=== PATIENT | female | born 1980 | race Two or more races ===

== ENCOUNTER 2023-12-25 14:21 | Outpatient (AMB) | payer MEDICAID, SELFPAY ==
--- NOTE | 2023-12-25 13:45 | A.OFFVISCC_ITS ---
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 Required: No Allergies No Known Allergies Allergy (Unknown, Unverified 08/12/20 17:08) HPI MAT Intake/Walk in HPI Details Patient presents as a walk in for intake and evaluation of opioid use Currently using 10-12 bags of heroin daily IN Last use this morning Substance Use History: No history of IV use Denies overdose no other substance use Starting using at age 31--thought it was cocaine Denies any treatment history Denies any other substance use tried someone's methadone once an did not like it Withdrawal sx --hot and cold, nausea, loose stools Denies any BH history Social History: -lives with BF and 2 teenage sons (16 an d 19) -currently not employed Medical History: -rt arm ORIF -chronic coccyx pain--from a fall, never treated -asthma -no PCP Review of Systems Const Reports difficulty sleeping, Reports lethargy, Reports malaise and Reports poor appetite Physical Exam Vital Signs: Last Vital Signs Pulse 88 12/25/23 14:24 Resp 20 12/25/23 14:24 BP 140/80 H 12/25/23 14:24 Oxygen Flow Rate 98 12/25/23 14:24 Const General: cooperative, anxious and well groomed Nutritional Appearance: average body habitus Assessment & Plan Assessment & Plan (1) Opioid use disorder: Code(s): F11.90 - Opioid use, unspecified, uncomplicated Plan: * reviewed low dose induction plan and provided instructions in writing as well * comfort medications ordered * encouraged to call office with any questions or concerns * labs to be completed at next visit * patient has narcan at home Medications: New buprenorphine-naloxone 2-0.5 mg (Suboxone) per induction protocol 1 film buccal BID 8 ea 0RF hydroxyzine HCl 25 mg PO TID PRN 20 tabs 0RF anxiety clonidine HCl 0.1 mg PO BID PRN 20 tabs 0RF withdrawal symptoms ondansetron 4 mg PO Q8H PRN 10 tabs 0RF nausea and vomiting Coding Level of Care Code New Pt Level 4 (34037) Diagnoses Opioid use disorder F11.90
[2023-12-25 14:24] VITALS: BP 140/80; PULSE 88; RESP 20
== END 2023-12-25 14:44 | disposition home or self-care (01) ==
PROVIDERS: Visit Provider Nurse Practitioner Psychiatric/Mental Health
DX: F11.90 Opioid use, unspecified, uncomplicated (principal)
CPT/HCPCS: 99204

== ENCOUNTER → 2023-12-25 14:21 | Outpatient (BNVA) | payer MEDICAID, SELFPAY | PROVIDERS: Visit Provider Nurse Practitioner Psychiatric/Mental Health | DX: F11.20 Opioid dependence, uncomplicated (principal) | CPT/HCPCS: 99212 ==

== ENCOUNTER 2023-12-28 13:33 | Emergency (ER) | payer MEDICAID, SELFPAY ==
[2023-12-28] VITALS (7 sets, daily range): BP systolic 135–173; BP diastolic 74–84; PULSE 64–96; RESP 16–22; TEMP 37–37.3; O2SAT 94–98; BMI 26.6
--- NOTE | ~2023-12-28 | CT_ITS ---
EXAMINATION: CT CHEST ANGIOGRAM PE PROTOCOL CLINICAL INFORMATION: , Reason for Exam shortness of breath COMPARISON: None TECHNIQUE: Volumetric imaging was performed through the chest. Reformatted coronal and sagittal imaging was performed. 3-D MIP images performed at a dedicated separate workstation. This CT examination was performed using dose optimization techniques as appropriate, variously including the following: *Automated exposure control *Adjustment of mA and/or kV according to patient size (this includes techniques or standardized protocols for targeted exams where dose is matched to indication/reason for exam; i.e. extremities or head) *Use of iterative reconstruction technique CONTRAST: 65 mL of Omnipaque 350 injected. DLP: 500 FINDINGS: PULMONARY ARTERIES: There is proper opacification of the pulmonary artery and its main branches . There are faint filling defect in peripheral secondary and tertiary branches which could be small nonocclusive emboli, [place] images. , Segmental and subsegmental branches to left lower lobe, alternatively artifacts.. LINES/TUBES: None LUNGS: Lung Parenchyma: Diffuse patchy solid and interstitial airspace opacification involving both lungs diffusely especially lower lobes and middle lobe most likely an infection possibly atypical infection such as viral or mycoplasma and/or aspiration. Lung Nodules:It is difficult to assess for lung nodule given the degree of lung involvement and follow-up CT scan would be required to ensure complete clearance and exclude underlying pathology. AIRWAYS: Trachea and bronchi are normal. PLEURA: No pleural effusion or pneumothorax. MEDIASTINUM AND JULIUS: The visualized thyroid gland is unremarkable. No mediastinal, hilar or axillary lymphadenopathy. There is no mediastinal mass. VESSELS: Thoracic aorta is normal in size. HEART AND PERICARDIUM: Heart is normal in size. There is no pericardial effusion. There are coronary calcifications. CHEST WALL, LOWER NECK, SURROUNDING SOFT TISSUES: Normal VISUALIZED ABDOMEN: Unremarkable BONES: The visualized bony thorax is within normal limits. CT/CT angio chest PE protocol IMPRESSION: 1. Diffuse patchy solid and interstitial airspace opacification involving both lungs diffusely especially lower lobes and middle lobe most likely an infection possibly atypical infection such as viral or mycoplasma and/or aspiration. 2. Indeterminant for PE, There are small faint filling defects in peripheral secondary and tertiary branches to left lower lobe, [place]ham images, which could be small nonocclusive emboli versus alternatively flow artifacts. No CT evidence of large central embolus. No CT evidence of right heart strain. May consider correlation with ultrasound venous Doppler DVT study of the lower extremities and/or repeat CT PE in 48 hours.
--- NOTE | ~2023-12-28 | XR_ITS ---
EXAMINATION: XR CHEST CLINICAL INFORMATION: Shortness of breath. COMPARISON: Chest 12/01/2011. TECHNIQUE: 2 views of the chest were obtained. FINDINGS: The lungs are well-expanded with increased bilateral vascular markings with mild cardiomegaly, question interstitial pneumonitis versus mild CHF. There is a soft tissue nodule right parahilar region measuring 3.2 cm. No pleural effusion seen. No gross bony abnormality. XR/XR chest 2V IMPRESSION: 1. Cardiomegaly with mild CHF versus interstitial pneumonitis. 2. Right parahilar soft tissue nodule measuring 3.[address] chest exam. 3. No pleural effusion seen. 4. Recommend CT correlation for mass.
--- NOTE | ~2023-12-28 | US_ITS ---
EXAMINATION: US VENOUS ULTRASOUND WITH DOPPLER LOWER EXTREMITY, BILATERAL CLINICAL INFORMATION: Pain and edema. COMPARISON: Bilateral lower extremity ultrasound 03/17/2019. TECHNIQUE: Ultrasound of the deep veins is performed from the hip to the calf with compression sonography and color and pulse Doppler assessment. Spectral analysis with color-flow imaging is performed. FINDINGS: RIGHT: There is normal venous compression and respiratory variation and augmented flow. The visualized common femoral vein, superficial femoral vein, profunda femoral vein, popliteal vein, and the trifurcation region shows no evidence of deep venous thrombosis. There is no significant popliteal fossa cyst. LEFT: There is normal venous compression and respiratory variation and augmented flow. The visualized common femoral vein, superficial femoral vein, profunda femoral vein, popliteal vein, and the trifurcation region shows no evidence of deep venous thrombosis. There is no significant popliteal fossa cyst. If the patient's symptoms persist, followup ultrasound in 5 days 7 days might be of value to exclude proximal propagation from a non-visualized calf vein. US/US venous duplex LE BI IMPRESSION: No DVT demonstrated in the bilateral lower extremities.
--- NOTE | 2023-12-28 13:53 | ED_ITS ---
HPI - General Adult General Chief complaint: Dyspnea Stated complaint: cough/ SOB Time Seen by Provider: 12/28/23 16:54 Source: patient and RN notes reviewed Mode of arrival: ambulatory Limitations: no limitations History of Present Illness HPI narrative: 43-year-old female with past medical history significant for opiate abuse recently started on Suboxone presents for evaluation of shortness of breath. Patient reports she has had a cough for a couple of weeks but reports shortness of breath for last 3 days and definitely worse today She reports worsening leg swelling for the last week. Patient states that she drinks lots of alexandrea navneet and water daily Denies any history of heart failure She denies any fevers or chills Patient reports that as a child she had asthma and was hospitalized several times but this has not been an issue for many years Denies any sick contacts Related Data Previous Rx's Medication Instructions Recorded buprenorphine 2 mg-naloxone 0.5 mg 1 film buccal BID #8 ea 12/25/23 sublingual film (Suboxone) clonidine HCl 0.1 mg tablet 0.1 mg PO BID PRN withdrawal 12/25/23 symptoms #20 tabs hydroxyzine HCl 25 mg tablet 25 mg PO TID PRN anxiety #20 tabs 12/25/23 ondansetron 4 mg disintegrating 4 mg PO Q8H PRN nausea and 12/25/23 tablet vomiting #10 tabs amoxicillin 875 mg-potassium 1 tab PO Q12H #13 tabs 12/28/23 clavulanate 125 mg tablet azithromycin 250 mg tablet 250 mg PO DAILY 4 days #4 tabs 12/28/23 Allergies Allergy/AdvReac Type Severity Reaction Status Date / Time No Known Allergies Allergy Unknown Verified 12/28/23 13:53 Review of Systems 2 Constitutional: Constitutional: Denies chills and Denies fever(s) ENT: Denies sore throat Cardiovascular: Cardiovascular: Denies chest pain, Reports pedal edema, Reports leg edema and Reports dyspnea Respiratory: Respiratory: Reports chest congestion, Reports cough, Reports dyspnea and Reports wheezing Gastrointestinal: Gastrointestinal: Denies abdominal pain, Denies nausea and Denies vomiting Musculoskeletal: Musculoskeletal: Denies back pain Integumentary/Breasts: Skin/Breast: Denies rash Allergic/Immunologic: Allergic/Immunologic: Reports wheezing PMFSH Social History Social History Alcohol intake: former Smoked in Last 30 Days: No Use of substances other than those prescribed or required for medical reasons: No Advance Directives: No Advance Directives Information Provided: No Physical Exam ED Vital Signs: Vital Signs - 24 hr 12/28/23 13:49 12/28/23 17:32 12/28/23 17:50 Temperature 98.6 F 98.9 F Pulse Rate 86 64 87 Respiratory Rate 22 H 20 16 Blood Pressure 150/74 H 173/84 H Pulse Oximetry 96 97 Oxygen Delivery Method Room Air Room Air 12/28/23 18:59 12/28/23 19:16 12/28/23 20:00 Temperature 99.1 F Pulse Rate 96 76 Respiratory Rate 22 H 16 16 Blood Pressure 150/84 H 135/81 Pulse Oximetry 96 94 Oxygen Delivery Method Room Air Room Air 12/28/23 21:38 Temperature Pulse Rate 74 Respiratory Rate 16 Blood Pressure 142/77 H Pulse Oximetry 95 Oxygen Delivery Method Room Air BMI result Body Mass Index 26.6 Const General: healthy appearing, comfortable, no acute distress, alert and awake Nutritional Appearance: well nourished Orientation/consciousness: patient oriented x3 HENMT Head: Yes normocephalic and Yes atraumatic Eyes Eyelids: Yes eyelids normal Conjunctivae: conjunctivae normal Sclerae: sclerae normal Corneas: corneas normal Pupils: Equal, round and reactive pupils present EOM: EOMs intact bilaterally Neck Neck: Yes full ROM Resp Effort & Inspection: normal respiratory effort, able to speak in complete sentences and not labored Auscultation: not clear to auscultation bilaterally, crackles bilateral and diffuse and wheezes throughout Cardio Other: 2+ bilateral pitting edema Rate: regular rate Rhythm: regular rhythm Skin General skin exam: elasticity normal Neuro General: patient oriented x3 Cranial nerves: Yes Equal, round and reactive pupils present and Yes Bilaterally intact EOM present Cognition (Neuro): normal cognition Extrem Other: Moving all extremities well without any obvious deformities Course Course Course Narrative: RME performed by Joanie Dobbins PA-C. Patient is a 43 year old assigned female at presenting to the emergency department with a cough and shortness of breath. Detailed physical exam and review of systems are deferred to the lumber tying machine operator. Labs, imaging, and swabs ordered. Patient placed back in the waiting room pending room availability and results. Reevaluation(s) Reevaluation #1: Patient's chest x-ray shows likely CHF, cardiomegaly and a 3.2 cm pulmonary nodule. Was recommended to follow-up with a CT scan to better evaluate this and rule out mass. The patient does have a smoking history. She states that she smoked ?on and off for a few years approximately 8 cigarettes per day. ? Will get a CTA to better evaluate this. Patient was given Lasix as her BNP was also elevated at 252 in her clinical picture was consistent with CHF. Patient will likely require admission for cardiac workup. I discussed all results with the patient Time: 18:32 Reevaluation #2: Discussed with the hospitalist who does not feel the patient needs admission. The CT angiography was concerning for infectious process and less likely to be significant heart failure. He recommends treatment for pneumonia and outpatient follow-up with Cardiology. I discussed with the patient. Time: 22:11 Medications Administered Discontinued Medications Generic Name Dose Route Start Last Admin Trade Name Freq PRN Reason Stop Dose Admin Albuterol Sulfate 2.5 mg/ 0 mg 12/28/23 17:29 12/28/23 17:46 Albuterol/Ipratropium 3 ml INHALE 12/28/23 17:30 5 dose ONCE ONE Administration Furosemide 20 mg 12/28/23 18:23 12/28/23 19:00 Furosemide 20 Mg/2 Ml Vial IVPUSH 12/28/23 18:24 20 mg ONCE ONE Administration Protocol Iohexol 100 ml 12/28/23 19:45 12/28/23 19:46 Iohexol 350 Mg/Ml 100 Ml Infus..Btl IV 12/28/23 19:46 65 ml ONCE ONE Administration Medical Decision Making Medical Decision Making [facility] Narrative: 43-year-old female presents for evaluation shortness of breath. On exam she has 2+ pitting edema, wheezes and crackles on exam. There appears to be a component of fluid overload. Plan for chest x-ray will add a BNP. Patient will get a breathing treatment she also has a history of asthma with wheezing. Her vital signs are currently stable, she has not hypoxic on room air Differential Diagnosis Differential Diagnoses: The differential diagnosis associated with the presentation includes Asthma exacerbation Bronchitis Fluid overload CHF Pneumonia Lab Data [facility] Lab Attestation statement: I reviewed the patient's lab results. No leukocytosis. No left shift. Patient has mild eosinophilia. The patient has a mild normocytic anemia. No significant electrolyte abnormalities or chemistry abnormalities 12/28/23 14:10 12/28/23 14:10 Labs: Lab Results 12/28/23 12/28/23 Range/Units 14:10 19:17 WBC 6.5 (4.8-10.8) X10*3/uL RBC 3.75 L (4.20-5.50) X10*6/uL Hgb 11.5 L (12.0-16.0) g/dl Hct 33.6 L (37.0-47.0) % MCV 89.6 (80.0-98.0) fL MCH 30.7 (27.0-33.0) pg MCHC 34.2 (31.0-35.0) g/dl RDW 12.5 (11.0-16.0) % Plt Count 276 (160-400) X10*3/uL MPV 9.2 L (9.4-12.3) fL Immature Gran % (Auto) 0.3 (0.0-0.4) % Neut % (Auto) 69.2 (45-73) % Lymph % (Auto) 19.2 L (20-40) % [place] % (Auto) 6.7 (2-11) % Eos % (Auto) 4.1 H (0-4) % Baso % (Auto) 0.5 (0-2) % Lymph # (Auto) 1.3 (1.2-4.9) X10*3/uL [place] # (Auto) 0.4 (0.1-1.2) X10*3/uL Eos # (Auto) 0.3 (0.0-0.4) X10*3/uL Baso # (Auto) 0.0 (0.0-0.2) X10*3/uL Abs Immat Gran (auto) 0.02 (0.00-0.03) X10*3/uL Absolute Neuts (auto) 4.5 (2.0-8.3) x10*3/uL Absolute Nucleated RBC 0.000 (0.0-0.012) X10*3/uL Nucleated RBC % (auto) 0.0 (0.0-0.2) /100WBC Sodium 136 (135-145) mmol/L Potassium 3.8 (3.3-5.1) mmol/L Chloride 103 (96-108) mmol/L Carbon Dioxide 26 (22-29) mmol/L Anion Gap 11 L (12-20) BUN 6 L (9-16) mg/dL Creatinine 0.67 (0.5-1.4) mg/dL Estim Creat Clear Calc 113.1 Estimated GFR > 60 Random Glucose 96 (60-115) mg/dL Calcium 9.5 (8.4-10.2) mg/dL Magnesium 1.9 (1.6-2.6) mg/dL Total Bilirubin 0.5 (0.0-1.0) mg/dL AST 23 (5-31) U/L ALT 20 (0-31) U/L Alkaline Phosphatase 62 (39-117) U/L Troponin I High Sens < 2.7 (<3.5-17.0) ng/L B-Natriuretic Peptide 252 H (<100) pg/mL Total Protein 8.2 H (6.5-8.0) g/dL Albumin 4.1 (3.5-5.0) g/dL Urine Color Yellow Urine Appearance Clear Urine pH 7.5 (5.0-9.0) Ur Specific [place] <= 1.005 (1.005-1.025) Urine Protein Negative (Neg-Trace) mg/dL Urine Glucose (UA) Negative (Negative) mg/dL Urine Ketones Trace (Negative) mg/dL Urine Blood Negative (Negative) Urine Nitrite Negative (Negative) Ur Leukocyte Esterase Negative (Negative) Urine Test NEGATIVE (NEGATIVE) COVID-19 ([facility]) Negative (Negative) COVID-19 Clin Com See Note Influenza Type A ([facility]) Negative (Negative) Influenza Type B (JOHN) Negative (Negative) Influenza A & B Note See Note Discharge Plan Discharge Clinical Impression: Acute dyspnea, Community acquired pneumonia, Congestive heart failure Patient Disposition: Home, Self-Care Instructions: Community Acquired Pneumonia (ED) Additional Instructions: Your workup showed mild heart failure as well as pneumonia You were given a water pill, Lasix to help remove the excess fluid Take your antibiotics as prescribed Follow-up with cardiology as an outpatient for the heart failure Return for new or worsening symptoms Prescriptions: New azithromycin 250 mg tablet 250 mg PO DAILY 4 Days Qty: 4 0RF Rx Instructions: start on day 2 of therapy amoxicillin-pot clavulanate 875-125 mg tablet 1 tab PO Q12H Qty: 13 0RF No Action buprenorphine-naloxone [Suboxone] 2-0.5 mg film 1 film buccal BID Qty: 8 0RF Rx Instructions: per induction protocol clonidine HCl 0.1 mg tablet 0.1 mg PO BID PRN (Reason: withdrawal symptoms) Qty: 20 0RF hydroxyzine HCl 25 mg tablet 25 mg PO TID PRN (Reason: anxiety) Qty: 20 0RF ondansetron 4 mg tablet,disintegrating 4 mg PO Q8H PRN (Reason: nausea and vomiting) Qty: 10 0RF
--- NOTE | 2023-12-28 13:54 | ECG_ITS ---
Test Reason : sob Blood Pressure : / mmHG Vent. Rate : 056 BPM Atrial Rate : 056 BPM P-R Int : 154 ms QRS Dur : 068 ms QT Int : 416 ms P-R-T Axes : 048 019 003 degrees QTc Int : 401 ms Sinus bradycardia with sinus arrhythmia Possible Anterior infarct , age undetermined Abnormal ECG No previous ECGs available Referred By: Joanie Dobbins Electronically Signed By:EDYTA CALDERON MD
[2023-12-28 14:14] LABS: MANUAL DIFF FLAG NO
[2023-12-28 14:16] LABS: Basophils Percent Auto 0.5 % (0-2); Eosinophils Absolute Auto 0.3 X10*3/uL (0.0-0.4); Eosinophils Percent Auto 4.1 % (0-4); Hematocrit 33.6 % (37.0-47.0); Hemoglobin 11.5 g/dl (12.0-16.0); Imm Gran Abs Auto 0.02 X10*3/uL (0.00-0.03); Imm Gran Pct Auto 0.3 % (0.0-0.4); Lymphocytes Absolute Auto 1.3 X10*3/uL (1.2-4.9); Lymphocytes Percent Auto 19.2 % (20-40); Mean Corpuscular HGB Conc 34.2 g/dl (31.0-35.0); Mean Corpuscular Hemoglobin 30.7 pg (27.0-33.0); Mean Corpuscular Volume 89.6 fL (80.0-98.0); Mean Platelet Volume 9.2 fL (9.4-12.3); Monocytes Absolute Auto 0.4 X10*3/uL (0.1-1.2); Monocytes Percent Auto 6.7 % (2-11); Neutrophils Absolute Auto 4.5 x10*3/uL (2.0-8.3); Neutrophils Percent Auto 69.2 % (45-73); Platelet Count 276 X10*3/uL (160-400); Red Blood Count 3.75 X10*6/uL (4.20-5.50); Red Cell Distribution Width 12.5 % (11.0-16.0); White Blood Count 6.5 X10*3/uL (4.8-10.8)
[2023-12-28 14:30] LABS: Alanine Aminotransferase 20 U/L (0-31); Albumin Level 4.1 g/dL (3.5-5.0); Alkaline Phosphatase 62 U/L (39-117); Anion Gap 11 (12-20); Aspartate Amino Transferase 23 U/L (5-31); Bilirubin Total 0.5 mg/dL (0.0-1.0); Blood Urea Nitrogen 6 mg/dL (9-16); Calcium 9.5 mg/dL (8.4-10.2); Carbon Dioxide 26 mmol/L (22-29); Chloride 103 mmol/L (96-108); Creatinine Clr Calc Pharmacy 113.1; Estimated Glomerular Filt Rate > 60; Glucose Random 96 mg/dL (60-115); Magnesium 1.9 mg/dL (1.6-2.6); Potassium 3.8 mmol/L (3.3-5.1); Sodium 136 mmol/L (135-145); Total Protein 8.2 g/dL (6.5-8.0)
[2023-12-28 14:39] LABS: COVID-19 Test Negative (Negative); IDNOW Serial# 08D9AD1C; IDNOW Serial# 152EDE1D; Influenza A Negative (Negative); Influenza B2 Negative (Negative); Troponin-I High Sensitivity < 2.7 ng/L (<3.5-17.0)
--- NOTE | 2023-12-28 17:34 | PC.NURSE ---
a&ox4, reporting SOB on with cough and trouble breathing for about 2 weeks. Lung sounds insp/exp wheezing. hx of childhood asthma. Spo2 99% RA.
[2023-12-28] MEDS: Albuterol Sulfate 2.5 MG, Albuterol/Iprat 2.5/0.5MG 3 ML 3 ML INHALE (17:46)
[2023-12-28 18:13] LABS: B Type Natriuretic Peptide 252 pg/mL (<100)
[2023-12-28] MEDS: Furosemide 20 MG/2 ML VIAL IVPUSH (19:00)
[2023-12-28 19:25] LABS: Appearance Urine Clear; Color Urine Yellow; Glucose Urine UA Negative (Negative); Leukocyte Esterase Urine Negative (Negative); Nitrite Urine Negative (Negative); PH 7.5 (5.0-9.0); Specific Gravity - Urine <= 1.005 (1.005-1.025); Urine Blood Negative (Negative); Urine Ketones Trace mg/dL (Negative); Urine Protein Negative (Neg-Trace)
--- NOTE | 2023-12-28 19:31 | PC.NURSE ---
assumed care of pt at 1900 - previous RN leann placed iv line #20g LAC, administered 20mg lasix iv per jan, pt ambulatory independently to and from bathroom with steady gait. waiting for CT scan. plan of care ongoing
[2023-12-28] MEDS: iohexoL 350 MG/ML 100 ML INFUS..BTL IV (19:46)
[2023-12-28 19:54] LABS: UPreg QC Valid YES; Urine Pregnancy NEGATIVE (NEGATIVE)
[2023-12-28] MEDS: Azithromycin 500 MG TABLET PO (22:48)
[2023-12-28] MEDS: Amoxicillin/Potassium Clav 875 MG TABLET PO (22:48)
== END 2023-12-28 22:53 | disposition home or self-care (01) ==
PROVIDERS: Physician Assistant; Physician Assistant Medical; Emergency Provider Emergency Medicine Emergency Medical Services
DX: J18.8 Other pneumonia, unspecified organism (principal); R06.09 Other forms of dyspnea; R06.02 Shortness of breath; I50.9 Heart failure, unspecified; Z11.52 Encounter for screening for COVID-19; R60.0 Localized edema; D64.9 Anemia, unspecified; F11.20 Opioid dependence, uncomplicated; Z79.899 Other long term (current) drug therapy
CPT/HCPCS: 71046; 71275; 80053; 81003; 81025; 83735; 83880; 84484; 85025; 87502; 87635; 93005; 93970; 94640; 96374; 99284; 99285; J1940; Q9967

== ENCOUNTER → 2023-12-28 13:54 | Outpatient (BNV) | payer MEDICAID, SELFPAY | PROVIDERS: Emergency Provider Emergency Medicine Emergency Medical Services; Visit Provider Internal Medicine Cardiovascular Disease | DX: R00.1 Bradycardia, unspecified (principal) | CPT/HCPCS: 93010 ==

== ENCOUNTER 2024-01-18 08:18 | Outpatient (REF) | payer MEDICAID, SELFPAY ==
[2024-01-18 09:12] LABS: MANUAL DIFF FLAG NO
[2024-01-18 09:22] LABS: Basophils Percent Auto 0.5 % (0-2); Eosinophils Absolute Auto 0.5 X10*3/uL (0.0-0.4); Eosinophils Percent Auto 7.6 % (0-4); Hematocrit 38.8 % (37.0-47.0); Hemoglobin 12.9 g/dl (12.0-16.0); Imm Gran Abs Auto 0.02 X10*3/uL (0.00-0.03); Imm Gran Pct Auto 0.3 % (0.0-0.4); Lymphocytes Absolute Auto 1.6 X10*3/uL (1.2-4.9); Lymphocytes Percent Auto 26.8 % (20-40); Mean Corpuscular HGB Conc 33.2 g/dl (31.0-35.0); Mean Corpuscular Hemoglobin 30.1 pg (27.0-33.0); Mean Corpuscular Volume 90.7 fL (80.0-98.0); Mean Platelet Volume 9.2 fL (9.4-12.3); Monocytes Absolute Auto 0.5 X10*3/uL (0.1-1.2); Monocytes Percent Auto 8.8 % (2-11); Neutrophils Absolute Auto 3.3 x10*3/uL (2.0-8.3); Platelet Count 237 X10*3/uL (160-400); Red Blood Count 4.28 X10*6/uL (4.20-5.50); Red Cell Distribution Width 12.7 % (11.0-16.0); White Blood Count 5.9 X10*3/uL (4.8-10.8)
[2024-01-18 09:48] LABS: B Type Natriuretic Peptide 30 pg/mL (<100)
[2024-01-18 10:00] LABS: Anion Gap 11 (12-20); Blood Urea Nitrogen 6 mg/dL (9-16); Calcium 9.6 mg/dL (8.4-10.2); Carbon Dioxide 29 mmol/L (22-29); Chloride 101 mmol/L (96-108); Estimated Glomerular Filt Rate > 60; Glucose Random 107 mg/dL (60-115); Potassium 3.9 mmol/L (3.3-5.1); Sodium 137 mmol/L (135-145)
[2024-01-18 10:16] LABS: TSH reflex Free T4 2.69 uIU/mL (0.32-4.0)
== END 2024-01-18 08:19 | disposition home or self-care (01) ==
LOC: HO.LAB 08:18
PROVIDERS: Visit Provider Nurse Practitioner Family
DX: R00.0 Tachycardia, unspecified (principal); R60.9 Edema, unspecified; I50.9 Heart failure, unspecified; F11.20 Opioid dependence, uncomplicated
CPT/HCPCS: 36415; 80048; 83880; 84443; 85025; 93005; 99212

== ENCOUNTER 2024-01-18 08:18 | Outpatient (AMB) | payer MEDICAID, SELFPAY ==
--- NOTE | 2024-01-18 08:20 | A.OFFVIS_ITS ---
Intake Vital Signs 01/18/24 08:21 Height 5 ft 6 in Weight 163 lb 9.328 oz BMI 26.4 BP 120/74 Blood Pressure Location Lt brachial Position Sitting Pulse 105 H Pulse Source Monitor Intake Visit Reasons: HMC/2-2/SOB/Cough Intake Note: pt having s/b while and during physical activities and both leg swelling Sealer Sander Required: No Allergies No Known Allergies Allergy (Unknown, Verified 01/18/24 08:24) Medication List - Last Reconciled 01/18/24 by Rhiannon Choe, BERNIE-C buprenorphine-naloxone 2-0.5 mg (Suboxone) 1 film buccal BID clonidine HCl 0.1 mg PO BID PRN hydroxyzine HCl 25 mg PO TID PRN ondansetron 4 mg PO Q8H PRN HPI HMC/2-2/SOB/Cough HPI Details Carlita is a 43 yo female with PMH of opioid use, now on suboxone who was recently seen in the [facility] ED for shortness of breath and treated for PNA and mild fluid overload. She was referred to cardiology to follow up on CHF. Today she presents for cardiology consultation. She tells me she has had issues with leg edema in the last few years. More recently it has increased. She has not been told in the past why she has edema. She recalls having ultrasounds and was told there was no blood clots. She is also noticing newer shortness of breath with activity. She tells me she sleeps with 2 pillows which is new. No chest discomfort at rest or with activity. No heart palpitations, lightheadedness, presyncope, syncope, PND. She does normal ADLs but no routine exercise. She has a remote history of smoking cigarettes, social alcohol use. She continues to have issues with substance use. She last used heroin a few days ago. No known family history of any heart disease. [facility] Medical History (Updated 01/18/24 @ 10:59 by Rhiannon Choe, BERNIE-C) Opioid use disorder Family History (Updated 01/18/24 @ 11:00 by Rhiannon Choe NP-C) Mother Asthma Sister Asthma Social History Alcohol intake: former Review of Systems Const All systems reviewed & are unremarkable except as noted in HPI and below ENT Denies dizziness Card Denies chest pain, Denies chest pain at rest, Denies chest pain with activity, Denies rapid heart rate, Denies pedal edema, Denies edema, Reports leg edema, Denies lightheadedness, Denies palpitations, Denies dyspnea, Reports dyspnea on exertion and Denies orthopnea Resp Denies cough, Denies dyspnea and Reports dyspnea on exertion GI Denies hematochezia and Denies change in stool character Musc Denies abnormal gait, Denies limited range of motion, Denies muscle cramps, Denies muscle weakness, Denies numbness, Denies radiating pain into limb, Denies stiffness and Denies tingling Neuro Denies abnormal gait, Denies dizziness, Denies numbness and Denies tingling Endo Denies palpitations Physical Exam Vital Signs: Last Vital Signs Pulse 105 H 01/18/24 08:21 BP 120/74 01/18/24 08:21 BMI result Body Mass Index 26.4 Const General: cooperative, healthy appearing, comfortable and no acute distress Orientation/consciousness: patient oriented x3 Neck Neck: Yes normal visual inspection and Yes no JVD Resp Effort & Inspection: normal respiratory effort Auscultation: clear to auscultation bilaterally, no crackles, no rales, no rhonchi and no wheezes Cardio Jugular venous distension: no JVD Rate: regular rate Rhythm: regular rhythm Heart sounds: S1 normal heart sound present, S2 normal heart sound present, no murmurs and no rubs Peripheral pulses: Peripheral pulses 2+ throughout Neuro General: patient oriented x3 Extrem Other: pitting edema from upper calf to feet bilaterally Psych Appearance: grossly normal Mental Status: mental status grossly normal Speech and movement: Normal speech and movement present Office Procedures EKG Details: Today read by me Sinus tachycardia, rate 105, QTc 446ms [id number], Complete Assessment & Plan Assessment & Plan (1) Congestive heart failure: Code(s): I50.9 - Heart failure, unspecified Plan: Recent [facility] ED evaluation for shortness of breath and cough. BNP elevated at 252. Chest x-ray showed cardiomegaly with mild Congestive heart failure versus interstitial pneumonitis. He was also a perihilar soft tissue nodule 3.2 cm. She then underwent a CTA of the chest showing diffuse patchy solid and interstitial air space opacification of both lungs especially in the lower lobes and middle lobe likely infectious. Indeterminate for PE, no evidence of large central emboli, no CT evidence of right heart strain. Lower extremity duplex showed no DVT. She was treated for pneumonia and given IV diuretic for fluid overload. Today she reports that she continues to have shortness of breath however it has improved some. She describes orthopnea and has bilateral leg edema. The leg edema issue is not new however she reports it as recently worsened. No JVD or rales noted on exam. Pulse rate is elevated today. EKG showing sinus tachycardia, rate 105. Will check labs today including CBC, BMP, BNP, TSH. Labs available prior to completion of this note. No significant abnormalities, BNP 30. Will give a low-dose of Lasix for a few days to see if that improves her edema and shortness of breath. Will check echocardiogram to assess for any structural heart disease. Pending echo results may need stress test for further evaluation. Compression stocks given. It is possible her swelling is related to peripheral vascular disease and that her shortness of breath is related to recent pneumonia. White count was normal on her labs. Reviewed low-salt diet. Emergency care if needed for worsening of symptoms. Cardiology follow-up in 4 weeks, sooner if needed (2) Edema: Code(s): R60.9 - Edema, unspecified Plan: As above (3) Acute dyspnea: Code(s): R06.00 - Dyspnea, unspecified Plan: Recent ER evaluation with diagnosis of pneumonia and fluid overload (4) Community acquired pneumonia: Code(s): J18.9 - Pneumonia, unspecified organism Plan: As above. Still having some shortness of breath, afebrile and normal white count. (5) Sinus tachycardia: Code(s): R00.0 - Tachycardia, unspecified Plan: Mild sinus tachycardia noted on EKG today Plan Time spent on chart review, documentation, interview and assessment Orders: Orders Complete Blood Count Auto Diff Today R00.0 - Tachycardia, unspecified, R60.9 - Edema, unspecified TSH reflex Free T4 Today R00.0 - Tachycardia, unspecified, R60.9 - Edema, unspecified CA echo transthoracic complete Today I50.9 - Heart failure, unspecified, R00.0 - Tachycardia, unspecified, R60.9 - Edema, unspecified B Type Natriuretic Peptide Today R00.0 - Tachycardia, unspecified, R60.9 - Edema, unspecified Basic Metabolic Panel Today R00.0 - Tachycardia, unspecified, R60.9 - Edema, unspecified Medications: New furosemide (Lasix) Water pill to help reduce leg swelling 20 mg PO DAILY 10 tabs 0RF Coding Level of Care Code New Pt Level 4 (73931) Diagnoses Congestive heart failure I50.9 Edema R60.9 Acute dyspnea R06.00 Community acquired pneumonia J18.9 Sinus tachycardia R00.0 CPT Codes EKG - CPT: 08703-[id number], Complete ([id number]) Time Spent (min) 28
[2024-01-18 08:21] VITALS: BP 120/74; PULSE 105; BMI 26.4
== END 2024-01-18 08:57 | disposition home or self-care (01) ==
PROVIDERS: Visit Provider Nurse Practitioner Family
DX: I50.9 Heart failure, unspecified (principal); R60.9 Edema, unspecified; R06.00 Dyspnea, unspecified; J18.9 Pneumonia, unspecified organism; R00.0 Tachycardia, unspecified
CPT/HCPCS: 93010; 99204

== ENCOUNTER 2024-01-18 09:21 | Outpatient (AMB) | payer MEDICAID, SELFPAY ==
[2024-01-18 09:25] VITALS: BP 150/90; PULSE 123; O2SAT 96
--- NOTE | 2024-01-18 09:25 | A.OFFVISCC_ITS ---
Intake Vital Signs 01/18/24 09:25 BP 150/90 H Blood Pressure Location Lt brachial Position Sitting Pulse 123 H Pulse Source Pulse Oximeter Pulse Oximetry (%) 96 Oxygen Delivery Method Room Air Intake Visit Reasons: mat Allergies No Known Allergies Allergy (Unknown, Verified 01/18/24 08:24) HPI mat HPI Details Patient presents for OUD treatment follow up Patient reports she restarted induction process Has been cutting down her use --down to 5 bags daily then her plan is to no longer use after today. Still has comfort medications and suboxone films Earlier today seen by cardiology and labs ordered due to bilateral lower leg edema PFSH Social History Alcohol intake: former Review of Systems Const Reports as per HPI, Reports chills, Reports lethargy and Reports malaise Physical Exam Vital Signs: Last Vital Signs Pulse 123 H 01/18/24 09:25 BP 150/90 H 01/18/24 09:25 Pulse Ox 96 01/18/24 09:25 Oxygen Delivery Method Room Air 01/18/24 09:25 Const General: cooperative, no acute distress and tired appearing Assessment & Plan Assessment & Plan (1) Opioid use disorder: Code(s): F11.90 - Opioid use, unspecified, uncomplicated Plan: * all medications refilled * reviewed induction process * Discussed ATS admission if induction becomes too challenging * encouraged to call office with any questions or concerns * follow up one week Medications: Refilled buprenorphine-naloxone 2-0.5 mg (Suboxone) per induction protocol 1 film buccal BID 8 ea 0RF clonidine HCl 0.1 mg PO BID PRN 20 tabs 0RF withdrawal symptoms ondansetron 4 mg PO Q8H PRN 10 tabs 0RF nausea and vomiting hydroxyzine HCl 25 mg PO TID PRN 20 tabs 0RF anxiety Coding Level of Care Code Est Pt Level 4 (40285) Diagnoses Opioid use disorder F11.90
== END 2024-01-18 09:42 | disposition home or self-care (01) ==
PROVIDERS: Visit Provider Nurse Practitioner Psychiatric/Mental Health
DX: F11.90 Opioid use, unspecified, uncomplicated (principal)
CPT/HCPCS: 99214

== ENCOUNTER → 2024-01-21 15:01 | Outpatient (REF) | payer MEDICAID, SELFPAY ==
--- NOTE | 2024-01-21 15:06 | CA_ITS ---
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 The visually estimated ejection fraction is between 55-60%. - No obvious valvular pathology seen on this study. Findings Left Ventricle Normal left ventricular cavity size. There is normal left ventricular wall thickness. The left ventricular systolic function is normal. The visually estimated ejection fraction is between 55-60%. There is no evidence of regional wall motion abnormalities. Diastolic function is normal for age. LV peak GLS -16.3% (slightly reduced). Right Ventricle Normal right ventricular cavity size and systolic function. Atria Both atria are normal in size. Aortic Valve There is a normal trileaflet aortic valve. There is no aortic valve stenosis. There is no aortic valve regurgitation. Mitral Valve The mitral valve appears normal. There is trace mitral valve regurgitation. There is no mitral valve stenosis. Pulmonic Valve The pulmonic valve is likely normal. Tricuspid Valve Normal tricuspid valve structure. There is trace tricuspid valve regurgitation. There is no evidence of pulmonary hypertension. Great Vessels The asc aorta is normal in size. Venous The inferior vena cava is normal in size and collapses greater than 50% with inspiration. Pericardium/Pleural There is no evidence of pericardial effusion. Prior Study Comparison No prior study available for comparison. Recommendations, Care & Conclusions No obvious valvular pathology seen on this study. Measurements 2D Linear Measurements IVSd: 0.78 0.6-0.9/0.6-1.0 cm LVIDd: 4.31 3.9-5.3/4.2-5.9 cm LVIDd Index: 2.34 2.4-3.2/2.2-3.1 cm/m2 LVIDs: 2.84 2.0-3.6 cm LVPWd: 0.72 0.7-1.1 cm LA Diam: 2.70 2.7-3.8/3.0-4.0 cm LAIDs Index: 1.47 1.5-2.3 cm/m2 LV Mass: 120.70 67-162/88-224 g LV Mass Index: 65.60 43-95/49-115 g/m2 LVOT Diam: 2.00 3.0+(-)1.3 cm 2D Systolic Function EF 4C: 57.50 >55% EF 2C: 62.40 >55% EF BiP: 60.70 >55% Mitral Valve MV Pk E: 0.58 MV PK A: 0.52 MV Decel Time: 250.00 E/A: 1.10 E'Lateral: 12.80 E'Medial: 8.49 E/E' Med: 6.80 E/E' Lat: 4.50 PHT: 73.00 MVA PHT: 3.01 Decel [place]: 2.31 Aortic Valve AoV Pk Nik: 1.18 AoV Mn Nik: 0.91 AoV VTI: 0.25 AoV Pk Grad: 6.00 Aov Mn Grad: 3.00 ALLAN Cont.VTI: 2.87 LVOT LVOT Pk Nik: 1.10 LVOT Mn Nik: 0.70 LVOT VTI: 0.23 LVOT Pk Grad: 5.00 LVOT Mn Grad: 2.00 LVOT Diam: 2.00 LVOT Area: 3.14 Diastolic Function MV Pk E: 0.58 MV Pk A: 0.52 E/A: 1.10 E'Medial: 8.49 E/E' Med: 6.80 E' Laterial: 12.80 E/E' Lat: 4.50 Right Ventricle TAPSE (mm): 20.30 TVS' Nik: 11.30 Tricuspid Valve TR Pk Nik: 1.85 TR Pk Grad: 14.00 RA Press: 3.00 RVSP: 17.00 Great Vessels Aorta Sinus of Valsalva: 3.14 2.0-3.[address] [place]: 2.10 1.7-3.4 cm Ao Asc: 2.50 2.1-3.4 cm Updated in Other Vendor System with Status of Final Mario Darby MD electronically signed on 01/22/2024 10:38:52 AM with status of Final
== END ==
LOC: HO.CARD 15:01
PROVIDERS: Visit Provider Nurse Practitioner Family
DX: R00.0 Tachycardia, unspecified (principal); R60.9 Edema, unspecified; I50.9 Heart failure, unspecified
CPT/HCPCS: 93306; 93356

== ENCOUNTER → 2024-01-21 15:06 | Outpatient (BNV) | payer MEDICAID, SELFPAY | PROVIDERS: Visit Provider Internal Medicine | DX: R00.0 Tachycardia, unspecified (principal); I50.9 Heart failure, unspecified | CPT/HCPCS: 93306 ==

== ENCOUNTER 2024-01-25 10:09 | Outpatient (AMB) | payer MEDICAID, SELFPAY ==
[2024-01-25 10:16] VITALS: BP 110/60; PULSE 133; RESP 19; O2SAT 93
--- NOTE | 2024-01-25 10:16 | A.OFFVISCC_ITS ---
Intake Vital Signs 01/25/24 10:16 01/25/24 10:35 BP 110/60 Blood Pressure Location Rt brachial Position Sitting Respiration 19 Pulse 133 H 104 H Pulse Source Pulse Oximeter Pulse Oximeter Pulse Oximetry (%) 93 Oxygen Delivery Method Room Air Intake Visit Reasons: mat Allergies No Known Allergies Allergy (Unknown, Verified 01/18/24 08:24) HPI mat HPI Details Patient presents for [facility]YS[facility] treatment and follow up She reports she has continued to use but has cut down from 5 bags daily to 1-2 She reports she has had intermittent restless legs, difficulty sleeping, and poor appetite She has been taking her suboxone films 2mg BID, she reports she feels better for a little while after taking, but has been afraid to take at a higher dose because she does not want to experience withdrawals She had an echocardiogram done earlier this week that she is waiting on results [facility] Medical History (Updated 01/18/24 @ 10:59 by GEOFFREY Rg) Opioid use disorder Family History (Updated 01/18/24 @ 11:00 by GEOFFREY Rg) Mother Asthma Sister Asthma Social History Alcohol intake: former Review of Systems Const Reports as per HPI and Reports poor appetite Card Denies chest pain, Denies chest pain at rest, Denies chest pain with activity, Denies syncope, Reports rapid heart rate, Reports lightheadedness (with position changes) and Reports dyspnea (occasional) Resp Reports dyspnea (occasional) GI Denies diarrhea and Denies vomiting Neuro Denies syncope Physical Exam Vital Signs: Last Vital Signs Pulse 133 H 01/25/24 10:16 Resp 19 01/25/24 10:16 BP 110/60 01/25/24 10:16 Pulse Ox 93 01/25/24 10:16 Oxygen Delivery Method Room Air 01/25/24 10:16 Const General: cooperative and no acute distress; No diaphoretic Resp Effort & Inspection: normal respiratory effort and able to speak in complete sentences Skin General skin exam: no rashes or lesions noted Psych Appearance: grossly normal Mental Status: mental status grossly normal Speech and movement: Normal speech and movement present Affect: normal affect Attitude: cooperative Assessment & Plan Assessment & Plan (1) Opioid use disorder: Code(s): F11.90 - Opioid use, unspecified, uncomplicated Plan: -Increase suboxone from 2mg bid to 4mg tid, encouraged her to cut her films in half and take 2mg every 2-3 hours as needed for withdrawal symptoms until they subside. Encouraged her to be mindful of what dose her symptoms subside with so she can be dosed appropriately. -Encouraged her to discontinue substance use and instead take her films for withdrawal symptoms -Harm reduction discussion -Trazodone 50mg at bedtime to help address poor sleep -Encouraged her to stay hydrated and drink plenty of water -Reviewed with her to seek medical attention should she continue to experience tachycardia or shortness of breath, chest pain -Follow up 1 week Medications: New trazodone 50 mg PO BEDTIME PRN 14 tabs 0RF sleep buprenorphine-naloxone 4-[address] 1 strip/tab under (each) side of tongue 1 film buccal TID 21 ea 0RF Discontinued buprenorphine-naloxone 2-0.5 mg (Suboxone) per induction protocol Discontinued Reason: None 1 film buccal BID 8 ea 0RF Coding Level of Care Code Est Pt Level 3 (45098) Diagnoses Opioid use disorder F11.90
[2024-01-25 10:35] VITALS: PULSE 104
== END 2024-01-25 10:44 | disposition home or self-care (01) ==
PROVIDERS: Visit Provider Nurse Practitioner Family
DX: F11.90 Opioid use, unspecified, uncomplicated (principal)
CPT/HCPCS: 99213

== ENCOUNTER → 2024-01-25 10:09 | Outpatient (BNVA) | payer MEDICAID, SELFPAY | PROVIDERS: Visit Provider Nurse Practitioner Family | DX: F11.20 Opioid dependence, uncomplicated (principal) | CPT/HCPCS: 99212 ==

== ENCOUNTER 2024-02-01 10:26 | Outpatient (AMB) | payer MEDICAID, SELFPAY ==
[2024-02-01 10:32] VITALS: BP 130/86; PULSE 126; O2SAT 95
--- NOTE | 2024-02-01 10:32 | MHC.AM.SUB ---
Intake Vital Signs 02/01/24 10:32 BP 130/86 Blood Pressure Location Lt radial Position Sitting Pulse 126 H Pulse Source Pulse Oximeter Pulse Oximetry (%) 95 Oxygen Delivery Method Room Air Intake Visit Reasons: MAT VISIT Intake Note: the patient presents for a mat visit Infusion Nurse Required: No Allergies No Known Allergies Allergy (Unknown, Verified 02/01/24 10:34) Do you need a note to return to daycare/school/sports/work: No HPI MAT VISIT HPI Details Patient presents for MAT follow up She has been taking 4mg suboxone tid-qid She has not used since last Sunday (6 days ago) She is feeling well overall, does endorse some anxiety, restless legs, poor sleep and poor appetite Reports she feels like her heart is racing every time she stands, recently had echo done at [facility] and is still awaiting the results No other concerns today [facility] Medical History (Updated 01/18/24 @ 10:59 by GEOFFREY Rg) Opioid use disorder Family History (Updated 01/18/24 @ 11:00 by GEOFFREY Rg) Mother Asthma Sister Asthma Social History Alcohol intake: former Review of Systems Const Reports as per HPI Card Denies chest pain, Denies chest pain at rest, Denies diaphoresis, Denies syncope and Reports rapid heart rate Resp Reports no additional complaints Neuro Denies syncope Physical Exam Vital Signs: Last Vital Signs Pulse 126 H 02/01/24 10:32 BP 130/86 02/01/24 10:32 Pulse Ox 95 02/01/24 10:32 Oxygen Delivery Method Room Air 02/01/24 10:32 Const General: cooperative and no acute distress Resp Effort & Inspection: normal respiratory effort and able to speak in complete sentences Psych Appearance: grossly normal Mental Status: mental status grossly normal Speech and movement: Normal speech and movement present Affect: normal affect Attitude: cooperative Assessment & Plan Assessment & Plan (1) Opioid use disorder: Code(s): F11.90 - Opioid use, unspecified, uncomplicated Plan: -Refill sent for hydroxyzine and clonidine -Suboxone dose increased to 8mg bid, she is likely still experiencing mild withdrawal symptoms (poor appetite, anxiety, restless legs) -She is presenting to cardiology after her appointment to discuss her echo and tachycardia -Reviewed with her to present to emergency dept if tachycardia persists or worsens with or without diaphoresis, lightheadedness, chest pain -Follow up 1 week Medications: New buprenorphine-naloxone 8-2 mg 1 film buccal BID 14 ea 0RF Changed From clonidine HCl 0.1 mg PO BID PRN 20 tabs 0RF withdrawal symptoms To clonidine HCl 0.1 mg PO BID 60 tabs 0RF Refilled hydroxyzine HCl 25 mg PO TID PRN 30 tabs 0RF anxiety ondansetron 4 mg PO Q8H PRN 10 tabs 0RF nausea and vomiting Discontinued buprenorphine-naloxone 4-[address] 1 strip/tab under (each) side of tongue Discontinued Reason: Patient no longer taking 1 film buccal TID 21 ea 0RF Coding Level of Care Code Est Pt Level 3 (12803) Diagnoses Opioid use disorder F11.90
== END 2024-02-01 12:58 | disposition home or self-care (01) ==
PROVIDERS: Visit Provider Nurse Practitioner Family
DX: F11.90 Opioid use, unspecified, uncomplicated (principal)
CPT/HCPCS: 99213

== ENCOUNTER → 2024-02-01 10:26 | Outpatient (BNVA) | payer MEDICAID, SELFPAY | PROVIDERS: Visit Provider Nurse Practitioner Family | DX: F11.20 Opioid dependence, uncomplicated (principal) | CPT/HCPCS: 99212 ==

== ENCOUNTER 2024-02-08 10:14 | Outpatient (AMB) | payer MEDICAID, SELFPAY ==
--- NOTE | 2024-02-08 10:16 | A.OFFVISCC_ITS ---
Intake Vital Signs 02/08/24 10:22 BP 128/76 Blood Pressure Location Lt radial Position Sitting Pulse 119 H Pulse Source Pulse Oximeter Pulse Oximetry (%) 97 Oxygen Delivery Method Room Air Intake Visit Reasons: MAT VISIT Intake Note: the patient presents for a mat visit Bank Worker Required: No Allergies No Known Allergies Allergy (Unknown, Verified 02/08/24 10:22) Do you need a note to return to daycare/school/sports/work: No HPI MAT VISIT HPI Details Patient presents for MAT visit Reports intermittent anxiety continues, she is unable to identify any triggers to it Denies cravings, or withdrawal symptoms Reports good effect from 8mg suboxone BID Has been experiencing constipation x 1 week, able to still pass gas Still endorsing poor sleep PFSH Medical History (Updated 01/18/24 @ 10:59 by GEOFFREY Rg) Opioid use disorder Family History (Updated 01/18/24 @ 11:00 by GEOFFREY Rg) Mother Asthma Sister Asthma Social History (Reviewed 01/18/24 @ 08:25 by Patria Carrasquillo [facility]) Alcohol intake: former Review of Systems Const Reports as per HPI Physical Exam Vital Signs: Last Vital Signs Pulse 119 H 02/08/24 10:22 BP 128/76 02/08/24 10:22 Pulse Ox 97 02/08/24 10:22 Oxygen Delivery Method Room Air 02/08/24 10:22 Const General: cooperative and no acute distress Resp Effort & Inspection: normal respiratory effort Psych Appearance: grossly normal and well kempt Mental Status: mental status grossly normal Speech and movement: Normal speech and movement present Affect: normal affect Attitude: cooperative Assessment & Plan Assessment & Plan (1) Opioid use disorder: Code(s): F11.90 - Opioid use, unspecified, uncomplicated Plan: -Mass pat reviewed -Cont suboxone 8mg BID -Start mirtazapine 7.5 mg at bedtime for sleep, med education provided -Start docusate sodium 100mg BID, discussed with her maintaining adequate fluid intake, incorporating fiber into her diet, and using a laxative temporarily to get her bowels moving. Reviewed with her to seek higher level of care should she continue to be unable to move her bowels or if she suddenly finds herself unable to pass gas -Follow up 1 week telehealth Medications: New docusate sodium 100 mg PO BID 60 caps 0RF mirtazapine 7.5 mg PO BEDTIME 14 tabs 0RF hydroxyzine HCl 50 mg PO BID 28 tabs 0RF Refilled buprenorphine-naloxone 8-2 mg 1 film buccal BID 14 ea 0RF Discontinued trazodone Discontinued Reason: None 50 mg PO BEDTIME PRN 14 tabs 0RF sleep hydroxyzine HCl Discontinued Reason: More recent result 25 mg PO TID PRN 30 tabs 0RF anxiety Coding Level of Care Code Est Pt Level 3 (06020) Diagnoses Opioid use disorder F11.90
[2024-02-08 10:22] VITALS: BP 128/76; PULSE 119; O2SAT 97
== END 2024-02-08 10:40 | disposition home or self-care (01) ==
PROVIDERS: Visit Provider Nurse Practitioner Family
DX: F11.90 Opioid use, unspecified, uncomplicated (principal)
CPT/HCPCS: 99213

== ENCOUNTER → 2024-02-08 10:14 | Outpatient (BNVA) | payer MEDICAID, SELFPAY | PROVIDERS: Visit Provider Nurse Practitioner Family | DX: F11.20 Opioid dependence, uncomplicated (principal) | CPT/HCPCS: 99212 ==

== ENCOUNTER 2024-02-15 08:59 | Outpatient (AMB) | payer MEDICAID, SELFPAY ==
--- NOTE | 2024-02-15 09:05 | A.OFFVIS_ITS ---
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: No Allergies No Known Allergies Allergy (Unknown, Verified 02/15/24 09:08) Medication List - Last Reconciled 02/15/24 by Rhiannon Choe, INDUSTRI[employer]-C buprenorphine-naloxone 8-2 mg 1 film buccal BID clonidine HCl 0.1 mg PO BID docusate sodium 100 mg PO BID hydroxyzine HCl 50 mg PO BID mirtazapine 7.5 mg PO BEDTIME ondansetron 4 mg PO Q8H PRN HPI 4 wk f/up HPI Details Carlita is a 43 yo female with PMH of opioid use, now on suboxone who was recently seen in the [facility] ED on 12/28/2023 for shortness of breath and treated for PNA and mild fluid overload. She was referred to cardiology to follow up for CHF. On last visit an echocardiogram was ordered and she now presents for follow-up. Today she reports she has been doing well since her last visit. She states her breathing is back to normal. She had a cough that did persist but it is now gone. She sleeps with 2-3 pillows which is her norm. Her prior leg edema had been chronic and has since resolved with the use a short course of Lasix. No chest discomfort at rest or with activity. No palpitations, lightheadedness, presyncope, syncope, falls. She tells me she has been sober for 3 weeks and she was applauded on this. [facility] Medical History Opioid use disorder Family History Mother Asthma Sister Asthma Social History Alcohol intake: former Review of Systems Const All systems reviewed & are unremarkable except as noted in HPI and below ENT Denies dizziness Card Denies chest pain, Denies chest pain at rest, Denies chest pain with activity, Reports rapid heart rate, Denies pedal edema, Denies edema, Denies leg edema, Denies lightheadedness, Denies palpitations, Denies dyspnea, Denies dyspnea on exertion and Denies orthopnea Resp Denies cough, Denies dyspnea and Denies dyspnea on exertion GI Denies hematochezia and Denies change in stool character Musc Denies abnormal gait, Denies limited range of motion, Denies muscle cramps, Denies muscle weakness, Denies numbness, Denies radiating pain into limb, Denies stiffness and Denies tingling Neuro Denies abnormal gait, Denies dizziness, Denies numbness and Denies tingling Endo Denies palpitations Physical Exam Vital Signs: Last Vital Signs Pulse 104 H 02/15/24 09:06 BP 100/70 02/15/24 09:06 BMI result Body Mass Index 25.5 Const General: cooperative, healthy appearing, comfortable and no acute distress Orientation/consciousness: patient oriented x3 Neck Neck: Yes normal visual inspection and Yes no JVD Resp Effort & Inspection: normal respiratory effort Auscultation: clear to auscultation bilaterally, no crackles, no rales, no rhonchi and no wheezes Cardio Jugular venous distension: no JVD Rate: regular rate Rhythm: regular rhythm Heart sounds: S1 normal heart sound present, S2 normal heart sound present, no murmurs and no rubs Peripheral pulses: Peripheral pulses 2+ throughout Neuro General: patient oriented x3 Extrem Other: pitting edema from upper calf to feet bilaterally Psych Appearance: grossly normal Mental Status: mental status grossly normal Speech and movement: Normal speech and movement present Assessment & Plan Assessment & Plan (1) Congestive heart failure: Code(s): I50.9 - Heart failure, unspecified Plan: Recent [facility] ED evaluation for shortness of breath and cough. BNP elevated at 252. Chest x-ray showed cardiomegaly with mild Congestive heart failure versus interstitial pneumonitis, there was also a perihilar soft tissue nodule 3.2 cm. She then underwent a CTA of the chest showing diffuse patchy solid and interstitial air space opacification of both lungs especially in the lower lobes and middle lobe likely infectious. Indeterminate for PE, no evidence of large central emboli, no CT evidence of right heart strain. Lower extremity duplex showed no DVT. She was treated for pneumonia and given IV diuretic for fluid overload. On follow-up visit she reported improved shortness of breath, residual orthopnea and bilateral leg edema. The leg edema issue was not new however she reports it was recently worsened. BNP 30 on that day. For her clinical symptoms she was given low-dose Lasix for short course to see if it improved her symptoms. An echocardiogram was done on 01/21/2024 showing EF 55- 60%, no valve abnormalities, normal diastolic function and normal RV. Structurally there is no current findings that should contribute to fluid overload. Her event was most likely a related to her pneumonia that did cause some heart strain and elevated BNP at the time of her ER evaluation. On exam today no clinical signs of heart failure. Her edema has resolved. Signs and symptoms of heart failure reviewed with her. Recommended ongoing low-salt diet. Emergency care if needed. Cardiology follow-up in 3-4 months, sooner if needed (2) Edema: Code(s): R60.9 - Edema, unspecified Plan: As above (3) Acute dyspnea: Code(s): R06.00 - Dyspnea, unspecified Plan: Recent ER evaluation with diagnosis of pneumonia and fluid overload (4) Community acquired pneumonia: Code(s): J18.9 - Pneumonia, unspecified organism Plan: Resolved (5) Sinus tachycardia: Code(s): R00.0 - Tachycardia, unspecified Plan: Mild sinus tachycardia noted today. She reports being sober for 3 weeks. This may be contributing to more elevated heart rates Plan Time spent on chart review, documentation, interview and assessment Coding Level of Care Code Est Pt Level 3 (42743) Diagnoses Congestive heart failure I50.9 Edema R60.9 Acute dyspnea R06.00 Community acquired pneumonia J18.9 Sinus tachycardia R00.0 Time Spent (min) 24
[2024-02-15 09:06] VITALS: BP 100/70; PULSE 104; BMI 25.5
== END 2024-02-15 09:26 | disposition home or self-care (01) ==
PROVIDERS: Visit Provider Nurse Practitioner Family
DX: I50.9 Heart failure, unspecified (principal); R60.9 Edema, unspecified; R06.00 Dyspnea, unspecified; J18.9 Pneumonia, unspecified organism; R00.0 Tachycardia, unspecified
CPT/HCPCS: 99213

== ENCOUNTER → 2024-02-15 08:59 | Outpatient (BNVA) | payer MEDICAID, SELFPAY | PROVIDERS: Visit Provider Nurse Practitioner Family | DX: F11.20 Opioid dependence, uncomplicated (principal); I11.0 Hypertensive heart disease with heart failure; I50.9 Heart failure, unspecified; J18.9 Pneumonia, unspecified organism; R06.00 Dyspnea, unspecified; R00.0 Tachycardia, unspecified; Z79.899 Other long term (current) drug therapy; Z51.81 Encounter for therapeutic drug level monitoring; E87.70 Fluid overload, unspecified | CPT/HCPCS: 99212 ==

== ENCOUNTER 2024-02-15 15:09 | Outpatient (AMB) | payer MEDICAID, SELFPAY ==
--- NOTE | 2024-02-15 15:09 | MHC.AM.SUB ---
Intake Intake Visit Reasons: mat visit Allergies No Known Allergies Allergy (Unknown, Verified 02/15/24 09:08) HPI mat visit HPI Details Pt presents via telehealth for MAT visit Reports she had follow up with cardiology that went well, her next appt is in 4 months She still struggles with constipation, however was able to move her bowels twice in the last few days Reports everything is going well at home She is trying to encourage her mother to come to the clinic for treatment Future oriented- wants to get back into the workforce [facility] Medical History Opioid use disorder Family History Mother Asthma Sister Asthma Social History Alcohol intake: former Review of Systems Const Reports as per HPI Physical Exam Const General: cooperative and no acute distress Resp Effort & Inspection: normal respiratory effort Psych Appearance: grossly normal Mental Status: mental status grossly normal Speech and movement: Normal speech and movement present Affect: normal affect Attitude: cooperative Assessment & Plan Assessment & Plan (1) Opioid use disorder: Code(s): F11.90 - Opioid use, unspecified, uncomplicated Plan: -Follow up 1 week -Mass pat reviewed -Cont suboxone 8mg bid Medications: New polyethylene glycol 3350 (Miralax) 17 grams PO DAILY 119 grams 1RF Refilled buprenorphine-naloxone 8-2 mg 1 film buccal BID 14 ea 0RF Coding Level of Care Code Tele Est Pt Level 3 (16949) Diagnoses Opioid use disorder F11.90 Time Spent (min) 30 Comment Time spent on the phone, with remainder performing chart review
== END 2024-02-15 15:22 | disposition home or self-care (01) ==
PROVIDERS: Visit Provider Nurse Practitioner Family
DX: F11.90 Opioid use, unspecified, uncomplicated (principal)
CPT/HCPCS: 99213

== ENCOUNTER 2024-02-22 09:59 | Outpatient (AMB) | payer MEDICAID, SELFPAY ==
--- NOTE | 2024-02-22 10:03 | MHC.AM.SUB ---
Intake Vital Signs 02/22/24 10:04 BP 100/60 Blood Pressure Location Lt brachial Position Sitting Respiration 19 Pulse 106 H Pulse Source Pulse Oximeter Pulse Oximetry (%) 98 Oxygen Delivery Method Room Air Intake Visit Reasons: mat visit Allergies No Known Allergies Allergy (Unknown, Verified 02/15/24 09:08) HPI mat visit HPI Details Patient presents for MAT visit She reports last week has gone well for her Continues to have some difficulty staying asleep, but reports overall sleeping is starting to improve for her She is tolerating 8mg BID well No concerns for cravings, withdrawal symptoms, or dreams of using Reports she is having more regular bowel movements, almost daily 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 COUNTS INCLUDE 234 BEDS AT THE [facility] Medical History Opioid use disorder Family History Mother Asthma Sister Asthma Social History Alcohol intake: former Review of Systems Const Reports as per HPI Physical Exam Vital Signs: Last Vital Signs Pulse 106 H 02/22/24 10:04 Resp 19 02/22/24 10:04 BP 100/60 02/22/24 10:04 Pulse Ox 98 02/22/24 10:04 Oxygen Delivery Method Room Air 02/22/24 10:04 Const General: cooperative and comfortable Resp Effort & Inspection: normal respiratory effort Psych Appearance: grossly normal Mental Status: mental status grossly normal Speech and movement: Normal speech and movement present Affect: normal affect Attitude: cooperative Assessment & Plan Assessment & Plan (1) Opioid use disorder: Code(s): F11.90 - Opioid use, unspecified, uncomplicated Plan: -Mass pat reviewed -Cont suboxone 8mg BID -Follow up 2 weeks Medications: Refilled mirtazapine 7.5 mg PO BEDTIME 30 tabs 2RF buprenorphine-naloxone 8-2 mg 1 film buccal BID 28 ea 0RF Coding Level of Care Code Est Pt Level 3 (28081) Diagnoses Opioid use disorder F11.90
[2024-02-22 10:04] VITALS: BP 100/60; PULSE 106; RESP 19; O2SAT 98
== END 2024-02-22 11:00 | disposition home or self-care (01) ==
PROVIDERS: Visit Provider Nurse Practitioner Family
DX: F11.90 Opioid use, unspecified, uncomplicated (principal)
CPT/HCPCS: 99213

== ENCOUNTER → 2024-02-22 09:59 | Outpatient (BNVA) | payer MEDICAID, SELFPAY | PROVIDERS: Visit Provider Nurse Practitioner Family | DX: F11.90 Opioid use, unspecified, uncomplicated (principal) | CPT/HCPCS: 99212 ==

== ENCOUNTER 2024-03-07 11:06 | Outpatient (AMB) | payer MEDICAID, SELFPAY ==
--- NOTE | 2024-03-07 11:14 | MHC.AM.SUB ---
Intake Vital Signs 03/07/24 11:15 BP 125/80 Blood Pressure Location Lt brachial Position Sitting Respiration 19 Pulse 111 H Pulse Source Pulse Oximeter Pulse Oximetry (%) 98 Oxygen Delivery Method Room Air Intake Visit Reasons: mat visit Allergies No Known Allergies Allergy (Unknown, Verified 02/15/24 09:08) HPI mat visit HPI Details Patient presents for OUD treatment and follow up Reports recovery has been going well for her Denies cravings, feels dose is adequate (8mg BID) States sometimes she only needs one, and some days she needs both Constipation has improved with the stool softeners and she is having daily bowel movements She is having some difficulties with leg edema- reports it started a few days ago, she has previously been on lasix 20mg daily with good effect She is also reporting difficulty staying asleep at night, feels the mirtazipine is helpful for falling asleep, but she is only sleeping for a few hours and then waking up. She has never had a sleep study. She denies any acute SOB, states sometimes she experiences dyspnea upon exertion which she attributes to being out of shape Sleeps on 2-3 pillows at night [facility] Medical History Opioid use disorder Family History Mother Asthma Sister Asthma Social History Alcohol intake: former Review of Systems Const Reports difficulty sleeping Card Denies chest pain at rest, Denies chest pain with activity, Reports rapid heart rate, Reports pedal edema, Denies irregular heart rhythm, Denies claudication, Reports leg edema (+2 pitting edema to bilateral legs), Reports dyspnea on exertion and Denies orthopnea Resp Reports dyspnea on exertion GI Reports no additional complaints Physical Exam Vital Signs: Last Vital Signs Pulse 111 H 03/07/24 11:15 Resp 19 03/07/24 11:15 BP 125/80 03/07/24 11:15 Pulse Ox 98 03/07/24 11:15 Oxygen Delivery Method Room Air 03/07/24 11:15 Assessment & Plan Assessment & Plan (1) Edema: Code(s): R60.9 - Edema, unspecified Qualifiers: Edema type: localized Qualified Code(s): R60.0 - Localized edema Plan: -Restart lasix 20mg daily, she has previously been on this dose and tolerated well -Counseled her to contact her parachute harness rigger to notify them for possible further evaluation -Discussed seeking higher level of care should one leg become larger than the other or should she experience acute onset warmth, redness or swelling to either calf -She is planning on scheduling PCP appt for further evaluation (2) Opioid use disorder: Code(s): F11.90 - Opioid use, unspecified, uncomplicated Plan: -Mass pat reviewed -Pt tolerating 8mg suboxone BID, refill sent -Follow up 2 weeks (3) Fatigue: Code(s): R53.83 - Other fatigue Qualifiers: Fatigue type: other Qualified Code(s): R53.83 - Other fatigue Plan: -Home sleep study ordered -Discussed sleep hygiene Orders: Orders RT home sleep study Today R53.83 - Other fatigue Medications: New furosemide 20 mg PO DAILY 30 tabs 0RF Refilled hydroxyzine HCl 50 mg PO BID 60 tabs 0RF buprenorphine-naloxone 8-2 mg 1 film buccal BID 28 ea 0RF Coding Level of Care Code Est Pt Level 4 (39418) Diagnoses Localized edema R60.0 Edema type: localized Opioid use disorder F11.90 Other fatigue R53.83 Fatigue type: other
[2024-03-07 11:15] VITALS: BP 125/80; PULSE 111; RESP 19; O2SAT 98
== END 2024-03-07 11:32 | disposition home or self-care (01) ==
PROVIDERS: Visit Provider Nurse Practitioner Family
DX: F11.90 Opioid use, unspecified, uncomplicated (principal); R60.0 Localized edema; R53.83 Other fatigue
CPT/HCPCS: 99214

== ENCOUNTER → 2024-03-07 11:06 | Outpatient (BNVA) | payer MEDICAID, SELFPAY | PROVIDERS: Visit Provider Nurse Practitioner Family | DX: R60.0 Localized edema (principal); R53.83 Other fatigue; F11.20 Opioid dependence, uncomplicated | CPT/HCPCS: 99212 ==

== ENCOUNTER 2024-03-21 10:21 | Outpatient (AMB) | payer MEDICAID, SELFPAY ==
--- NOTE | 2024-03-21 11:03 | A.OFFVISCC_ITS ---
Vital Signs 03/21/24 11:04 BP 162/100 H Blood Pressure Location Lt brachial Position Sitting Pulse 92 Pulse Source Pulse Oximeter Pulse Oximetry (%) 97 Oxygen Delivery Method Room Air Intake Visit Reasons: mat visit Allergies No Known Allergies Allergy (Unknown, Verified 02/15/24 09:08) HPI HPI mat visit: Details: Patient presents for OUD treatment and follow up States she has been doing well Has been taking 8mg suboxone daily and is tolerating well Has experienced decrease in BLE edema, she took the lasix for a week, edema has not returned on cessation She wears compression socks during the day 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, 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 Is feeling good about her recovery, no cravings HPI Comments Details: Patient presents for MAT visit [facility] Medical History Opioid use disorder Family History Mother Asthma Sister Asthma Social History Alcohol intake: former Review of Systems Const Reports as per HPI and Denies headache(s) Eyes Denies change in vision and Denies diplopia ENT Denies dizziness and Denies headache(s) Neuro Denies dizziness and Denies headache(s) Physical Exam Const General: cooperative and no acute distress Resp Effort & Inspection: normal respiratory effort and able to speak in complete sentences Psych Appearance: grossly normal Mental Status: mental status grossly normal Speech and movement: Normal speech and movement present Affect: normal affect Attitude: cooperative Thought process: Normal thought process present Assessment & Plan Assessment & Plan (1) Opioid use disorder: Code(s): F11.90 - Opioid use, unspecified, uncomplicated Category: Medical Plan: -Suboxone dose adjusted to 8mg daily, refill sent to pharmacy -Discussed with her to monitor her blood pressure at home, if high blood pressure persists or should she become symptomatic (vision changes/headache) she should present to the emergency dept -Follow up 2 weeks Medications: Changed From buprenorphine-naloxone 8-2 mg 1 film buccal BID 28 ea 0RF To buprenorphine-naloxone 8-2 mg 1 film buccal Q24H 14 ea 0RF
[2024-03-21 11:04] VITALS: BP 162/100; PULSE 92; O2SAT 97
== END 2024-03-21 11:13 | disposition home or self-care (01) ==
PROVIDERS: Visit Provider Nurse Practitioner Family
DX: F11.90 Opioid use, unspecified, uncomplicated (principal)
CPT/HCPCS: 99213

== ENCOUNTER → 2024-03-21 10:21 | Outpatient (BNVA) | payer MEDICAID, SELFPAY | PROVIDERS: Visit Provider Nurse Practitioner Family | DX: F11.20 Opioid dependence, uncomplicated (principal) | CPT/HCPCS: 99212 ==

== ENCOUNTER 2024-04-01 10:15 | Outpatient (AMB) | payer MEDICAID, SELFPAY ==
--- NOTE | 2024-04-01 10:15 | MHC.AM.SUB ---
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 [facility] Medical History Opioid use disorder Family History Mother Asthma Sister Asthma Social History Alcohol intake: former Review of Systems Const Reports as per [facility] Telehealth Telehealth Telehealth Platform: Telephone Location of provider rendering services: practice address Location of patient: address on file Patient Identification confirmed using: Name, : Yes Telehealth method: voice only Patient verbally consented to treatment: Yes Patient verbally consented to billing insurance company: Yes Patient informed of any privacy concerns related to visit: Yes Minutes spent on Phone/Video with Pt.: 10 Assessment & Plan Assessment & Plan (1) Opioid use disorder: Code(s): F11.90 - Opioid use, unspecified, uncomplicated Category: Medical Plan: -BUDDY pulido reviewed -Suboxone refill sent to pharmacy (2) Fatigue: Code(s): R53.83 - Other fatigue Category: Medical Qualifiers: Fatigue type: other Qualified Code(s): R53.83 - Other fatigue Plan: -Given partial response with mirtazapine, plan is to switch patient to ramelteon. Discussed with patient how to taper off the mirtazapine. Reviewed with her to discontinue mirtazapine prior to beginning the ramelteon. Discussed with her to avoid sedating medications, or alcohol use while using this medication. -Script for ramelteon sent to pharmacy Medications: New ramelteon 8 mg PO BEDTIME PRN 30 tabs 0RF sleep Refilled buprenorphine-naloxone 8-2 mg 1 film buccal Q24H 30 ea 0RF Discontinued mirtazapine Discontinued Reason: None 7.5 mg PO BEDTIME 30 tabs 2RF
== END 2024-04-01 10:25 | disposition home or self-care (01) ==
PROVIDERS: Visit Provider Nurse Practitioner Family
DX: F11.90 Opioid use, unspecified, uncomplicated (principal); R53.83 Other fatigue
CPT/HCPCS: 99212

== ENCOUNTER → 2024-04-01 10:15 | Outpatient (BNVA) | payer MEDICAID, SELFPAY | PROVIDERS: Visit Provider Nurse Practitioner Family ==

== ENCOUNTER 2024-04-24 13:55 | Outpatient (AMB) | payer MEDICAID, SELFPAY ==
[2024-04-24 13:59] VITALS: BP 138/84; PULSE 107; O2SAT 99
--- NOTE | 2024-04-24 13:59 | A.OFFVISCC_ITS ---
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 HPI Comments Details: Patient presents for MAT visit [facility] Medical History Opioid use disorder Family History Mother Asthma Sister Asthma Social History Alcohol intake: former Review of Systems Const Reports as per HPI Physical Exam Vital Signs: Last Vital Signs Pulse 107 H 04/24/24 13:59 BP 138/84 04/24/24 13:59 Pulse Ox 99 04/24/24 13:59 Oxygen Delivery Method Room Air 04/24/24 13:59 Const General: cooperative and no acute distress Resp Effort & Inspection: normal respiratory effort and able to speak in complete sentences Psych Appearance: grossly normal Mental Status: mental status grossly normal Speech and movement: Normal speech and movement present Affect: normal affect Attitude: cooperative Thought process: Normal thought process present Assessment & Plan Assessment & Plan (1) Opioid use disorder: Code(s): F11.90 - Opioid use, unspecified, uncomplicated Category: Medical Plan: -Dose adjusted to 8mg BID from 8mg daily -Follow up 2 weeks Medications: Changed From buprenorphine-naloxone 8-2 mg 1 film buccal Q24H 30 ea 0RF To buprenorphine-naloxone 8-2 mg 1 film buccal BID 60 ea 0RF Refilled ramelteon 8 mg PO BEDTIME PRN 30 tabs 2RF sleep
== END 2024-04-24 14:27 | disposition home or self-care (01) ==
PROVIDERS: Visit Provider Nurse Practitioner Family
DX: F11.90 Opioid use, unspecified, uncomplicated (principal)
CPT/HCPCS: 99213

== ENCOUNTER → 2024-04-24 13:55 | Outpatient (BNVA) | payer MEDICAID, SELFPAY | PROVIDERS: Visit Provider Nurse Practitioner Family | DX: F11.20 Opioid dependence, uncomplicated (principal) | CPT/HCPCS: 99212 ==

== ENCOUNTER 2024-05-08 14:32 | Outpatient (AMB) | payer MEDICAID, SELFPAY ==
--- NOTE | 2024-05-08 14:38 | MHC.AM.SUB ---
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 about this Denies any cravings or withdrawal symptoms Taking suboxone 8mg BID and tolerating well Doing well overall Reports sleep has improved HPI Comments Details: Patient presents for MAT visit [facility] Medical History Opioid use disorder Family History Mother Asthma Sister Asthma Social History Alcohol intake: former Review of Systems Const Reports as per HPI Physical Exam Vital Signs: Last Vital Signs Pulse 112 H 05/08/24 14:39 Resp 20 05/08/24 14:39 BP 140/70 H 05/08/24 14:39 Pulse Ox 99 05/08/24 14:39 Const General: cooperative and no acute distress Resp Effort & Inspection: normal respiratory effort and able to speak in complete sentences Psych Appearance: grossly normal Mental Status: mental status grossly normal Speech and movement: Normal speech and movement present Affect: normal affect Attitude: cooperative Thought process: Normal thought process present Assessment & Plan Assessment & Plan (1) Opioid use disorder: Code(s): F11.90 - Opioid use, unspecified, uncomplicated Category: Medical Plan: -Mass pat reviewed -Suboxone refill not due at this time -Encouraged patient to call [facility] when her films start to run low -Follow up 1 month
[2024-05-08 14:39] VITALS: BP 140/70; PULSE 112; RESP 20; O2SAT 99
== END 2024-05-08 14:50 | disposition home or self-care (01) ==
PROVIDERS: Visit Provider Nurse Practitioner Family
DX: F11.90 Opioid use, unspecified, uncomplicated (principal)
CPT/HCPCS: 99213

== ENCOUNTER → 2024-05-08 14:32 | Outpatient (BNVA) | payer MEDICAID, SELFPAY | PROVIDERS: Visit Provider Nurse Practitioner Family | DX: F11.20 Opioid dependence, uncomplicated (principal); Z79.899 Other long term (current) drug therapy | CPT/HCPCS: 99212 ==

== ENCOUNTER 2024-06-09 09:12 | Outpatient (AMB) | payer MEDICAID, SELFPAY ==
--- NOTE | 2024-06-09 09:14 | A.OFFVIS_ITS ---
Vital Signs 06/09/24 09:15 Height 5 ft 6 in Weight 170 lb 10.205 oz BMI 27.5 BP 100/82 Blood Pressure Location Lt brachial Position Sitting Pulse 85 Pulse Source Pulse Oximeter Intake Visit Reasons: 4 mth f/up Superintendent Pressure Required: No Allergies No Known Allergies Allergy (Unknown, Verified 06/09/24 09:17) Medication List - Last Reconciled 06/09/24 by Rhiannon Choe, NURSING CONSULTANT-C buprenorphine-naloxone 8-2 mg 1 film buccal BID clonidine HCl 0.1 mg PO BID docusate sodium 100 mg PO BID hydroxyzine HCl 50 mg PO BID polyethylene glycol 3350 (Miralax) 17 grams PO DAILY ramelteon 8 mg PO BEDTIME PRN HPI HPI 4 mth f/up: Details: Carlita is a 43 yo female with PMH of opioid use, now on suboxone who was seen in the [facility] ED on 12/28/2023 for shortness of breath and treated for PNA and mild fluid overload. She was referred to cardiology to follow up for mild CHF. On last visit her breathing had improved and she continued to have some mild leg edema. Today she reports she has been doing well since her last visit in January. She still gets leg edema at times. She tells me this problem has been present for at a few years. She has seen a venous specialist and was told that a vein ablation would be helpful. She does have some mild shortness of breath with over exertion. She admits to being likely deconditioned. She has been trying to walk her dog routinely. No chest discomfort at rest or with activity. No palpitations, lightheadedness, presyncope, syncope, falls. She continues to follow with the Suboxone program. [facility] Medical History Opioid use disorder Family History Mother Asthma Sister Asthma Social History Alcohol intake: former Review of Systems Const All systems reviewed & are unremarkable except as noted in HPI and below and Other ENT Denies dizziness Card Denies chest pain, Denies chest pain at rest, Denies chest pain with activity, Denies rapid heart rate, Denies pedal edema, Denies edema, Reports leg edema, Denies lightheadedness, Denies palpitations, Denies dyspnea, Denies dyspnea on exertion and Denies orthopnea Resp Denies cough, Denies dyspnea and Denies dyspnea on exertion GI Denies hematochezia and Denies change in stool character Musc Denies abnormal gait, Denies limited range of motion, Denies muscle cramps, Denies muscle weakness, Denies numbness, Denies radiating pain into limb, Denies stiffness and Denies tingling Neuro Denies abnormal gait, Denies dizziness, Denies numbness and Denies tingling Endo Denies palpitations Physical Exam Vital Signs: BMI result Body Mass Index 27.5 Const General: cooperative, healthy appearing, comfortable and no acute distress Orientation/consciousness: patient oriented x3 Neck Neck: Yes normal visual inspection and Yes no JVD Resp Effort & Inspection: normal respiratory effort Auscultation: clear to auscultation bilaterally, no crackles, no rales, no rhonchi and no wheezes Cardio Jugular venous distension: no JVD Rate: regular rate Rhythm: regular rhythm Heart sounds: S1 normal heart sound present, S2 normal heart sound present, no murmurs and no rubs Peripheral pulses: Peripheral pulses 2+ throughout Neuro General: patient oriented x3 Extrem Other: no lower leg edema noted Psych Appearance: grossly normal Mental Status: mental status grossly normal Speech and movement: Normal speech and movement present Assessment & Plan Assessment & Plan (1) Congestive heart failure: Code(s): I50.9 - Heart failure, unspecified Category: Medical Plan: [facility] ED evaluation for shortness of breath and cough. BNP elevated at 252. Chest x-ray showed cardiomegaly with mild Congestive heart failure versus interstitial pneumonitis, there was also a perihilar soft tissue nodule 3.2 cm. She then underwent a CTA of the chest showing diffuse patchy solid and interstitial air space opacification of both lungs especially in the lower lobes and middle lobe likely infectious. Indeterminate for PE, no evidence of large central emboli, no CT evidence of right heart strain. Lower extremity duplex showed no DVT. She was treated for pneumonia and given IV diuretic for fluid overload. An echocardiogram was done on 01/21/2024 showing EF 55-60%, no valve abnormalities, normal diastolic function and normal RV. Structurally there is no current findings that should contribute to fluid overload. Her event was most likely a related to her pneumonia that did cause some heart strain and elevated BNP at the time of her ER evaluation. On follow-up visit she reported improved shortness of breath, residual orthopnea and bilateral leg edema. At that time she was given a course of low-dose Lasix to help with edema. Today she reports that her breathing remained stable. She continues to have some mild leg edema at times. She says this problem has been intermittent for the last few years. She describes having a venous evaluation and was told she has issues with the veins in her legs. This problem sounds like venous insufficiency. She states that she was told she would need a procedure on her veins but has not followed through with this as of yet. She has no clinical signs of decompensated heart failure on examination. Will have her follow with her venous specialist for her leg edema. Reviewed low-salt diet, leg elevation, compression stockings. Signs and symptoms of heart failure were discussed. At this time cardiology follow-up can be as needed. P.r.n. low-dose Lasix can be prescribed by her PCP if warranted. (2) Edema: Code(s): R60.9 - Edema, unspecified Category: Medical Qualifiers: Edema type: localized Qualified Code(s): R60.0 - Localized edema Plan: As above (3) Community acquired pneumonia: Code(s): J18.9 - Pneumonia, unspecified organism Category: Medical Plan: Resolved Plan Time spent on chart review, documentation, interview and assessment Coding Level of Care Code Est Pt Level 3 (13284) Diagnoses Congestive heart failure I50.9 Localized edema R60.0 Edema type: localized Community acquired pneumonia J18.9 Time Spent (min) 24
[2024-06-09 09:15] VITALS: BP 100/82; PULSE 85; BMI 27.5
== END 2024-06-09 10:12 | disposition home or self-care (01) ==
PROVIDERS: Visit Provider Nurse Practitioner Family
DX: I50.9 Heart failure, unspecified (principal); R60.0 Localized edema; J18.9 Pneumonia, unspecified organism
CPT/HCPCS: 99213

== ENCOUNTER → 2024-06-09 09:12 | Outpatient (BNVA) | payer MEDICAID, SELFPAY | PROVIDERS: Visit Provider Nurse Practitioner Family | DX: I50.9 Heart failure, unspecified (principal); R60.0 Localized edema; J18.9 Pneumonia, unspecified organism | CPT/HCPCS: 99212 ==

== ENCOUNTER 2024-06-18 13:09 | Outpatient (AMB) | payer MEDICAID, SELFPAY ==
--- NOTE | 2024-06-18 13:15 | MHC.AM.SUB ---
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 [facility] Medical History (Updated 06/18/24 @ 13:35 by Radha Dye CNP) Opioid use disorder Family History Mother Asthma Sister Asthma Social History Alcohol intake: former Review of Systems Const Reports as per HPI and Reports no additional complaints Physical Exam Const General: cooperative (bright affect), healthy appearing and well groomed Nutritional Appearance: average body habitus Orientation/consciousness: patient oriented x3 Limitations: no limitations Neuro General: patient oriented x3 Assessment & Plan Assessment & Plan (1) Opioid use disorder, severe, in early remission: Code(s): F11.21 - Opioid dependence, in remission Category: Medical Plan: 5 months of no opioid use continue suboxone at current dose docusate refilled to address constipation follow up 4 weeks Medications: Refilled docusate sodium 100 mg PO BID 180 caps 0RF buprenorphine-naloxone 8-2 mg 1 film buccal BID 60 ea 0RF Discontinued clonidine HCl Discontinued Reason: Patient no longer taking 0.1 mg PO BID 180 tabs 1RF
== END 2024-06-18 13:33 | disposition home or self-care (01) ==
PROVIDERS: Visit Provider Nurse Practitioner Psychiatric/Mental Health
DX: F11.21 Opioid dependence, in remission (principal)
CPT/HCPCS: 99214

== ENCOUNTER → 2024-06-18 13:09 | Outpatient (BNVA) | payer MEDICAID, SELFPAY | PROVIDERS: Visit Provider Nurse Practitioner Psychiatric/Mental Health | DX: F11.21 Opioid dependence, in remission (principal) | CPT/HCPCS: 99212 ==

== ENCOUNTER 2024-07-09 10:19 | Outpatient (REF) | payer MEDICAID, SELFPAY ==
--- NOTE | ~2024-07-09 | XR_ITS ---
EXAMINATION: XR CHEST CLINICAL INFORMATION: Cough, chest pain. Evaluate for pneumonia. COMPARISON: 12/28/2023 TECHNIQUE: 2 views of the chest were obtained. FINDINGS: Lungs are well expanded. The bronchial stacy appear to be diffusely thickened. No focal interstitial infiltrate, consolidation or pleural effusion. Cardiac silhouette has normal size and contour. Skeletal structures are unremarkable. XR/XR chest 2V IMPRESSION: No radiographic evidence of pneumonia. The bronchial stacy appear to be diffusely thickened. This requires clinical correlation. Correlate for any history of asthma, bronchitis and/or cigarette smoking.
== END 2024-07-09 10:20 | disposition home or self-care (01) ==
LOC: HO.HHCX 10:19
PROVIDERS: Visit Provider Internal Medicine
DX: R05.9 Cough, unspecified (principal)
CPT/HCPCS: 36415; 71046; 80048; 83880

== ENCOUNTER 2024-07-09 10:36 | Outpatient (REF) | payer MEDICAID, SELFPAY ==
[2024-07-09 12:17] LABS: Anion Gap 11 (12-20); Blood Urea Nitrogen 9 mg/dL (9-16); Calcium 9.2 mg/dL (8.4-10.2); Carbon Dioxide 27 mmol/L (22-29); Chloride 104 mmol/L (96-108); Estimated Glomerular Filt Rate > 60; Glucose Random 89 mg/dL (60-115); Potassium 3.9 mmol/L (3.3-5.1); Sodium 138 mmol/L (135-145)
[2024-07-09 12:27] LABS: B Type Natriuretic Peptide 12 pg/mL (<100)
== END 2024-07-09 10:37 | disposition home or self-care (01) ==
LOC: HO.HHCL 10:36
PROVIDERS: Visit Provider Internal Medicine
DX: Z13.89 Encounter for screening for other disorder (principal)
CPT/HCPCS: 36415; 80048; 83880

== ENCOUNTER 2024-07-18 10:56 | Outpatient (AMB) | payer MEDICAID, SELFPAY ==
--- NOTE | 2024-07-18 10:49 | MHC.AM.SUB ---
Intake Visit Reasons: MAT visit Allergies No Known Allergies Allergy (Unknown, Verified 06/09/24 09:17) HPI HPI MAT visit: Details: Patient presents for follow up Currently prescribed suboxone 8mg BID tolerating current dose still waiting to hear back from [address] [place] [address] considering getting a PT job has been working with [facility] to address lower extremity edema [facility] Medical History (Updated 06/18/24 @ 13:35 by Radha Dye CNP) Opioid use disorder Family History Mother Asthma Sister Asthma Social History Alcohol intake: former Review of Systems Const Reports as per HPI and Reports no additional complaints Physical Exam Const General: cooperative, healthy appearing, no acute distress and well groomed Assessment & Plan Assessment & Plan (1) Opioid use disorder, severe, in early remission: Code(s): F11.21 - Opioid dependence, in remission Category: Medical Plan: 6 months of no opioid use continue suboxone at current dose follow up 5 weeks Medications: Refilled buprenorphine-naloxone 8-2 mg 1 film buccal BID 60 ea 1RF
== END 2024-07-18 13:34 | disposition home or self-care (01) ==
PROVIDERS: Visit Provider Nurse Practitioner Psychiatric/Mental Health
DX: F11.21 Opioid dependence, in remission (principal)
CPT/HCPCS: 99213

== ENCOUNTER → 2024-07-18 10:56 | Outpatient (BNVA) | payer MEDICAID, SELFPAY | PROVIDERS: Visit Provider Nurse Practitioner Psychiatric/Mental Health | DX: F11.21 Opioid dependence, in remission (principal) | CPT/HCPCS: 99212 ==

== ENCOUNTER → 2024-07-31 13:00 | Outpatient (BNV) | payer MEDICAID, SELFPAY | PROVIDERS: PCP Internal Medicine; Visit Provider Internal Medicine | DX: Z12.31 Encounter for screening mammogram for malignant neoplasm of breast (principal) | CPT/HCPCS: 77063; 77067 ==

== ENCOUNTER 2024-07-31 13:39 | Outpatient (REF) | payer MEDICAID, SELFPAY ==
--- NOTE | ~2024-07-31 | MM_ITS ---
EXAMINATION: MM SCREENING DIGITAL BREAST TOMOSYNTHESIS, BILATERAL CLINICAL INFORMATION: Screening. Asymptomatic. COMPARISON: Mammography: Baseline. TECHNIQUE: Digital breast mammography with tomosynthesis is performed in both the craniocaudal and mediolateral oblique views along with computer-aided detection (CAD). FINDINGS: The breasts are heterogeneously dense, which may obscure small masses (ACR BI-RADS breast composition Category c). There are no significant masses, abnormal calcifications, or other abnormalities. MM/MM tomosynthesis screening BI IMPRESSION: No mammographic evidence of malignancy. ASSESSMENT: BI-RADS BI-RADS 1 - Negative RECOMMENDATION: Routine annual mammography screening. 1 year F/U This examination should not preclude the clinical evaluation of a suspicious palpable abnormality. This patient's information was entered into a reminder system with a target due date for their next mammogram. Electronically signed by: Emely Javier DO 08/17/2024 03:00 PM DONTA
== END 2024-07-31 13:40 | disposition home or self-care (01) ==
LOC: HO.MAMMO 13:39
PROVIDERS: PCP Internal Medicine; Visit Provider Internal Medicine
DX: Z12.31 Encounter for screening mammogram for malignant neoplasm of breast (principal)
CPT/HCPCS: 77063; 77067

== ENCOUNTER 2024-08-05 14:13 | Outpatient (REF) | payer MEDICAID, SELFPAY ==
[2024-08-07 10:54] LABS: HPV mRNA E6/E7 Not Detected (Not Detected)
== END 2024-08-05 14:14 | disposition home or self-care (01) ==
LOC: HO.CHCLNP 14:13
PROVIDERS: Visit Provider Family Medicine
DX: Z12.4 Encounter for screening for malignant neoplasm of cervix (principal)
CPT/HCPCS: 36415; 87624; 88175

== ENCOUNTER 2024-08-19 11:53 | Outpatient (REF) | payer MEDICAID, SELFPAY ==
[2024-08-19 18:03] LABS: Bacterial Vaginosis PCR POSITIVE (Negative); Candida Group PCR DETECTED (Not Detect); Candida glab krusei PCR NOT DETECTED (Not Detect); Trichomonas vaginalis PCR NOT DETECTED (Not Detect)
[2024-08-19 18:18] LABS: CT PCR NOT DETECTED (Not Detect.); NG PCR NOT DETECTED (Not Detect.)
== END 2024-08-19 11:54 | disposition home or self-care (01) ==
LOC: HO.CHCLNP 11:53
PROVIDERS: Visit Provider Family Medicine
DX: N76.0 Acute vaginitis (principal)
CPT/HCPCS: 0352U; 87491; 87591

== ENCOUNTER 2024-08-22 09:58 | Outpatient (AMB) | payer MEDICAID, SELFPAY ==
--- NOTE | 2024-08-22 10:00 | A.OFFVISCC_ITS ---
Intake Visit Reasons: MAT Tele Allergies No Known Allergies Allergy (Unknown, Verified 06/09/24 09:17) HPI HPI MAT Tele: Details: Patient presents for follow up Reports decreasing dose to one film --and now taking 1/2 film discussed slowly tapering dose not moving too fast as she is now at 4mg PFSH Medical History (Updated 06/18/24 @ 13:35 by Radha Dye CNP) Opioid use disorder Family History Mother Asthma Sister Asthma Social History Alcohol intake: former Review of Systems Const Reports as per HPI and Reports no additional complaints Telehealth Telehealth Telehealth Platform: Telephone Location of provider rendering services: practice address Location of patient: address on file Patient Identification confirmed using: Name, : Yes Telehealth method: voice only Patient verbally consented to treatment: Yes Patient verbally consented to billing insurance company: Yes Minutes spent on Phone/Video with Pt.: 15 Assessment & Plan Assessment & Plan (1) Opioid use disorder, severe, in early remission: Code(s): F11.21 - Opioid dependence, in remission Category: Medical Plan: * relapse prevention discussion * risk reduction related to decreasing dose * follow up 4 weeks
== END 2024-08-22 10:25 | disposition home or self-care (01) ==
PROVIDERS: Visit Provider Nurse Practitioner Psychiatric/Mental Health
DX: F11.21 Opioid dependence, in remission (principal)
CPT/HCPCS: 99214

== ENCOUNTER → 2024-08-22 09:58 | Outpatient (BNVA) | payer MEDICAID, SELFPAY | PROVIDERS: Visit Provider Nurse Practitioner Psychiatric/Mental Health ==

== ENCOUNTER 2024-12-17 13:35 | Outpatient (AMB) | payer MEDICAID, SELFPAY ==
[2024-12-17 14:01] VITALS: PULSE 103; RESP 19; O2SAT 93
--- NOTE | 2024-12-17 14:01 | A.OFFVISCC_ITS ---
Vital Signs 12/17/24 14:01 Blood Pressure Location Rt radial Position Sitting Respiration 19 Pulse 103 H Pulse Oximetry (%) 93 Intake Visit Reasons: MAT Allergies No Known Allergies Allergy (Unknown, Verified 06/09/24 09:17) HPI HPI MAT: Details: Patient presents as a walk in for follow up Last appt in July Reports things having been going well--has tapered dose to 4mg daily was previously taking 16mg Tolerating dose decrease --denies any cravings Some anxiety, which is managed with hydroxyzine Has been caring for her mother 2-3 days per week Review of Systems Const Reports as per HPI and Reports no additional complaints Physical Exam Vital Signs: Last Vital Signs Pulse 103 H 12/17/24 14:01 Resp 19 12/17/24 14:01 Pulse Ox 93 12/17/24 14:01 Const General: cooperative, healthy appearing, comfortable and well groomed Nutritional Appearance: average body habitus Limitations: no limitations Psych Appearance: well kempt Speech and movement: Normal speech and movement present Affect: normal affect Attitude: cooperative Thought process: Normal thought process present Thought content: Normal thought content present Insight: Good insight present (Psych) Judgement: Good judgement present (Psych) [facility] Medical History (Updated 06/18/24 @ 13:35 by Radha Dye CNP) Opioid use disorder Family History Mother Asthma Sister Asthma Social History Alcohol intake: former Assessment & Plan Assessment & Plan (1) Opioid use disorder, severe, in early remission: Code(s): F11.21 - Opioid dependence, in remission Category: Medical Plan: * continue suboxone at 4mg QD * relapse prevention discussion * follow up one month Medications: New buprenorphine-naloxone 4-1 mg (Suboxone) 1 film buccal Q24H 30 ea 0RF Refilled ramelteon (Rozerem) 8 mg PO BEDTIME PRN 90 tabs 0RF for insomnia Discontinued buprenorphine-naloxone 8-2 mg Discontinued Reason: Patient no longer taking 1 film buccal BID 60 ea 1RF
--- OUTSIDE RECORDS SUMMARY | 2024-12-17 15:44 | XMS_ITS | Clinical Summary ---
Author Organization [employer] Address [address] [facility] [address] [place] [address] Care Team Providers Care Brush Cutter Name Role Phone Fidel Espinoza MD Primary Care Prov ider Allergies No known active allergies Medications Ventolin HFA 108 (90 Base) MCG/ACT inhaler INHALE 2 PUFFS EVERY 6 HOURS IF NEEDED FOR WHEEZING. 18 g 4 Active Suboxone 8-2 MG SL film USE 1 FILM BUCCALLY 2 TIMES A DAY 4 Active cloNIDine (Catapres) 0.1 MG tablet Take 0.1 mg by mouth 2 times daily. 4 Active docusate sodium (Colace) 100 MG capsule Take 100 mg by mouth 2 times daily. 4 Active hydrOXYzine HCl (Atarax) 50 MG tablet Take 50 mg by mouth 2 times daily. 4 Active Levonorgestrel 20 MCG/DAY intrauterine device 1 each by Intrauterine route 1 (one) time. 1 Active mirtazapine (Remeron) 7.5 MG tablet Take 7.5 mg by mouth at bedtime. 4 Active polyethylene glycol, PEG, 3350 (Glycolax) 17 GM/SCOOP powder DISSOLVE 17 GM AND TAKE BY MOUTH DAILY 4 Active Rozerem 8 MG tablet Take 8 mg by mouth if needed at bedtime for sleep. 4 Active Active Problems Problem Noted Date Diagnosed Date Encounter for contraceptive management 4 Acute vaginitis 08/19/2024 Assessment & Plan (08/19/2024 11:34 AM EDT): Started yesterday, recommended to stop douching practices. 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 Follow up for IUD replacement. Encounter for physical examination 07/26/2024 Assessment & Plan (07/26/2024 9:47 PM EDT): Unremarkable physical exam Pending pap smear, which will be ordered with a female provider Pending mammogram, will be ordered Labs will be ordered Encounter for medical examination to establish c are 05/22/2024 Assessment & Plan (05/22/2024 2:33 PM EDT): Patient has never been hospitalized Visited er once on the past year due to pneumonia and lower extremity swelling No pcp in over 20 yrs Pmh:- Psh: right arm fracture s/p surgery on 2018 All:_ Meds: buprenorine started on dec 2023 A0 both vaginal deliveries Sexually active with 1 male partner IUD mirena placed 3 years ago used as contraceptive Moderate cervical dysplasia 06/26/2016 Overview (07/02/2024): On Pap. Had cone biopsy 05/2011 but no dysplasia on pathology Abnormal cervical Papanicolaou smear 04/19/2011 Immunizations Name Administration Dates Next Due Influenza Injectable Quadriv alant Preservative Free IIV4 MDCK 08/19/2019 Tdap 07/02/2024 Family History Medical History Relation Name Comments No Known Problems Brother No Known Problems Father Asthma Mother Kidney disease Mother Liver cancer Mother Cirrhosis Mother's Brother No Known Problems Sister Relation Name Status Comments Brother Father Mother Mother's Brother Sister Social History Tobacco Use Types Packs/Day Years Used Date Smoking Tobacco: Every Day Cigarettes 0.3 6.1 Started: 2018 Smokeless Tobacco: Never Tobacco Cessation:Ready to Q uit: Not Asked; Counseling Given: Not Answered Alcohol Use Standard Drinks/Week Comments Yes 0 (1 standard drink = 0.6 oz pur e alcohol) socially once a month Depression Answer Date Recorded Patient Health Questionnaire-9 Score 0 05/22/2024 Patient Health Questionnaire-9 Score 0 05/22/2024 Last PHQ-9: Questionnaire Data Not on file 0 05/22/2024 Housing Stability Answer Date Recorded What is your housing situation today? I have martina resendez 05/22/[address] you li ve. Do you have problems with any of the following? None of the above 05/22/2024 Food Insecurity Answer Date Recorded Within the past 12 months, y ou worried that your food would run out before you got money to buy more: Never True 05/22/2024 Within the past 12 months,th e food you bought just didn't last and you didn't have enough money to get more: Never True Transportation Answer Date Recorded In the past 12 months, has l ack of transportation kept you from medical appts, meetings, work or from getting things needed for daily living? No 05/22/2024 Utilities Answer Date Recorded In the past 12 months, has t he electric, gas, oil or water company threatened to shut off services in your home? No 05/22/2024 Depression Answer Date Recorded Patient Health Questionnaire-2 Score 0 05/22/2024 Internet Access Answer Date Recorded Internet Access Q1 Yes 07/26/2024 Internet Access Q2 Not on file 07/26/2024 Comments No Sex and Gender Information Value Date Recorded Sex Assigned at Female 02/29/2024 10:45 AM EDT Legal Sex Female 10:43 AM EDT Gender Identity Female 02/29/2024 10:45 AM EDT Sexual Orientation Straight 07/03/2024 3: 49 PM EDT Last Filed Vital Signs Vital Sign Reading Time Taken Comments Blood Pressure 144/100 08/19/2024 11:12 AM EDT Pulse 84 08/19/2024 11:12 AM EDT Temperature 36.8 ??C (98.2 ??F) 08/19/2024 1 1:12 AM EDT Respiratory Rate 20 08/19/2024 11:1 2 AM EDT Oxygen Saturation 98% 08/19/2024 11: 12 AM EDT Inhaled Oxygen Concentration - - Weight 76.1 kg (167 lb 12.8 oz) 024 11:12 AM EDT Height 167.6 cm (5' 6 ) 08/19/2024 11:1 2 AM EDT Body Mass Index 27.08 08/19/2024 11:12 AM EDT Plan of Treatment Health Maintenance Due Date Last Done Comments HIV Screening 1981 Lipid Panel 1981 Pneumococcal Vaccine: Pediatrics (0 to 5 Years) and At-Risk Patients (6 to 64 Years) (1 of 2 - PCV) 1987 Alcohol/Substance Use Screening 1993 Hepatitis C Screening 1999 Hepatitis B Vaccines (1 of 3 - 19+ 3-dose series) 2000 COVID-19 Vaccine (2023-2 5 season) 2024 Influenza Vaccine (#1) 2024 08/19/2019 Depression Screening 05/22/2025 05/22/2024, 05/22/2024 SDOH Screening 05/22/2025 05/22/2024 Tobacco Screening 08/05/2025 08/05/2024 Mammogram 07/31/2026 07/31/2024 Cervical Cancer Screening 08/05/2029 HPV/Cotest 08/05/2029 08/05/2024 Pap Smear 08/05/2029 08/05/2024 Zoster Vaccines (1 of 2) 2031 DTaP/Tdap/Td Vaccines (2 - T d or Tdap) 07/02/2034 07/02/2024 RSV Patients and Patients Aged 60 years or older (1 - 1-dose 75+ series) 2056 HIB Vaccines Aged Out No longer eligi ble based on patient's age to complete this topic HPV Vaccines Aged Out No longer eligi ble based on patient's age to complete this topic Hepatitis A Vaccines Aged Out No long er eligible based on patient's age to complete this topic IPV Vaccines Aged Out No longer eligi ble based on patient's age to complete this topic Meningococcal Vaccine Aged Out No rosalina dami eligible based on patient's age to complete this topic RSV under 20 months Aged Out No longe r eligible based on patient's age to complete this topic Rotavirus Vaccines Aged Out No longer eligible based on patient's age to complete this topic Procedures Procedure Name Priority Date/Time Associated Diagnosis Comments THINPREP IMAGING PAP AND HPV MRNA E6/E7 Routine 08/05/2024 12:00 AM EDT Bronchitis BI MAMMOGRAM SCREENING TOMOSYNTHESIS BILATERAL Routine 07/31/2024 1:55 PM EDT Encounter for screening mammogram for malignant neoplasm of breast from Last 3 Months or Most Recently Relevant to Health Maintenance Results * ThinPrep Imaging Pap and HPV mRNA E6/E7 (08/05/2024 12:00 AM EDT) HPV nRNA E6/E7 Not Detected Not Detected [facility] Comment:Methodology: Transcr iption-Mediated AmplificationThis assay detects E6/E7 viral messenger RNA (mRNA) from 14high-risk HPV types (16,18,31,33,35,39,45,51,52,56,58,59,66,68).Cervical sources are required for HPV testing.If a vaginal source from a patient who has had atotal hysterectomy with removal of cervix wassubmitted, please contact the testing laboratoryfor alternative testing options.For additional information, please refer tohttp://education.Trivnet/faq/YQM671g5(This link if provided for information/educational purposes only.)THIS TEST WAS PERFORMED AT:[employer] [place] [phone] KEEN MD SOURCE: SEE NOTE [facility] Comment:None given Report Status: [facility] Clinical Information: SEE NOTE [facility] Comment:None given LMP: SEE NOTE [facility] Comment:NONE GIVEN Prev. PAP: SEE NOTE [facility] Comment:NONE GIVEN Prev. BX: SEE NOTE [facility] Comment:NONE GIVEN Statement Of Adequacy: SEE NOTE [facility] Comment:Satisfactory for swetha luation.Endocervical/transformation zone componentpresent. General Categorization: [facility] Interpretation/Result: SEE NOTE [facility] Comment:Cytology Results: Ne gative for intraepitheliallesion or malignancy. Cytology Comment SEE NOTE [facility] Comment:This Pap test has be en evaluated with computerassisted technology. Electric Deicer Inspector: SEE NOTE [facility] Comment:[place], CT(ASCP)CT scre ening location: [address] [address] Review Electric Deicer Inspector: TNAv [facility] Pathologist TNP [facility] PAP Infection TNP [facility] See Note SEE NOTE [facility] Comment:EXPLANATORY NOTE:The Pap is a screening test for cervical cancer. It isnot a diagnostic test and is subject to false negativeand false positive results. It is most reliable when asatisfactory sample, regularly obtained, is submittedwith relevant clinical findings and history, and whenthe Pap result is evaluated along with historic andcurrent clinical information. 08/05/2024 08/05/2024 Narrative [facility] - 08/08/2024 3:28 PM EDT SEE SCANNED RESULTS IN EMR us Amalia Gómez MD LAB PATHOLOGY ORDERABLES Shayna farfan Result [facility] [address] [place] [address] [phone] * BI Mammogram Screening Tomosynthesis Bilateral (07/31/2024 1:55 PM EDT) Anatomical Region Laterality Modality Breast Bilateral Mammography 07/31/2024 1:55 PM EDT Narrative 08/17/2024 3:03 PM EDT ? [facility] ? [address] ?[place] [address] ? Mammography Report ? Signed ? Patient: Carlita Kim ?MR#: [id number] ?? 19 ? : 1980 ?Acct:[id number] ? Age/Sex: 44 / F ?ADM Date: 09/05/24 ? Loc: HO.MAMMO ? Attending Dr: Fidel Hines MD ? Ordering Physician: Fidel Espinoza MD ?Res ?? ults: 1Negative ? Date of Service: 07/31/24 ?Follow Up: 1 Year From Orig ?? inal Mammogram ? Procedure(s): MM tomosynthesis screening BI ?? Accession Number(s): [id number] ? cc: Fidel Espinoza MD ? EXAMINATION: ?? MM SCREENING DIGITAL BREAST TOMOSYNTHESIS, BILATERAL ? CLINICAL INFORMATION: ? Screening. Asymptomatic. ? COMPARISON: ?? Mammography: Baseline. ? TECHNIQUE: ?? Digital breast mammography with tomosynthesis is performed in both the ?? craniocaudal and mediolateral oblique views along with computer-aided ?? detection (CAD). ? FINDINGS: ?? The breasts are heterogeneously dense, which may obscure small masses ?? (ACR BI-RADS breast composition Category c). ? There are no significant masses, abnormal calcifications, or other ?? abnormalities. ? MM/MM tomosynthesis screening BI ?? IMPRESSION: ?? No mammographic evidence of malignancy. ? ASSESSMENT: ? BI-RADS BI-RADS 1 - Negative ? RECOMMENDATION: ?? Routine annual mammography screening. ? 1 year F/U ? This examination should not preclude the clinical evaluation of a ?? suspicious palpable abnormality. ? This patient's information was entered into a reminder system with a ?? target due date for their next mammogram. ? Electronically signed by: ??Emely Javier DO ??08/17/2024 03:00 PM EDT ?? RP ? Dictated By: ?Emely Javier DO ? Signed By: ?<Electronically signed by Emely Javier, DO in OV> ? 08/17/24 1500 ? DD/ 1355 ? TD/TT: 07/31/24 1414 ? Carrot Tier: ? Procedure Note Donotuseinterpreter, Image - 08/17/2024 [place] [address] [place] [address] Mammography Report Signed Patient: Carlita KimMR#: [id number] 18 : 1980Acct:[id number] Age/Sex: 44 / FADM Date: 07/31/24 Loc: HO.MAMMO Attending Dr: Fidel Hines MD Ordering Physician: Fidel Espinoza ults: 1Negative Date of Service: 07/31/24Follow Up: 1 Year From Orig inal Mammogram Procedure(s): MM tomosynthesis screening BI Accession Number(s): [id number] cc: Fidel Espinoza MD EXAMINATION: MM SCREENING DIGITAL BREAST TOMOSYNTHESIS, BILATERAL CLINICAL INFORMATION: Screening. Asymptomatic. COMPARISON: Mammography: Baseline. TECHNIQUE: Digital breast mammography with tomosynthesis is performed in both the craniocaudal and mediolateral oblique views along with computer-aided detection (CAD). FINDINGS: The breasts are heterogeneously dense, which may obscure small masses (ACR BI-RADS breast composition Category c). There are no significant masses, abnormal calcifications, or other abnormalities. MM/MM tomosynthesis screening BI IMPRESSION: No mammographic evidence of malignancy. ASSESSMENT: BI-RADS BI-RADS 1 - Negative RECOMMENDATION: Routine annual mammography screening. 1 year F/U This examination should not preclude the clinical evaluation of a suspicious palpable abnormality. This patient's information was entered into a reminder system with a target due date for their next mammogram. Electronically signed by: Emely Javier DO 08/17/2024 03:00 PM EDT Dictated By: Emely Javier DO Signed By: <Electronically signed by Emely Javier DO in OV> 08/17/24 1500 DD/ 1355 TD/TT: 07/31/24 1414 Carrot Tier: Fidel Hines MD IMG BI PROCEDURES Final Result from Last 3 Months or Most Recently Relevant to Health Maintenance Insurance [address] [place], [place] [id number] Care Teams Brush Cutter Relationship Specialty Start Date End Date Fidel Espinoza MD [address] [place] [id number] PCP - General Internal Medicine 05/22/24
--- OUTSIDE RECORDS SUMMARY | 2024-12-17 15:44 | XMS_ITS | Continuity of Care Document ---
Author Organization [facility] Khadijah Tracy [email or web address] [facility] Address [address] [place] [address], [address] [address]- Support Name Relationship Address Phone GURPREET BUNCH mother Unknown Unavailable LLUVIA PERDOMO domestic partner Unknown Unavailable [id number] Date(s): 11/06/24 - 12/06/24 [facility] Khadijahrandall [email or web address] [facility] [address] [facility] [place], [place] [address] Attending Physician: Nico Burgess Admitting Physician: Nico Burgess Referring Physician: AdmtrNico Encounter Type: Triage Allergies, Adverse Reactions, Alerts No Known Allergies Medications aspirin 325 mg oral delayed release tablet 325 mg, 1, tablet, By Mouth, Daily, # 14 tablet, Refills 0, Tot. Refills 0, Maintenance, 07/23/19 12:08:05 PM EDT, Print Requisition Start Date: 07/23/19 Stop Date: 08/06/19 Status: Ordered Quantity: 14.0 Unit: tablet Repeat number: 1 Colace sodium 100 mg oral capsule 100 mg, 1, capsule, By Mouth, 2 times a day, # 20 capsule, Refills 0, Tot. Refills 0, Maintenance, 07/23/19 12:06:42 PM EDT, Print Requisition Start Date: 07/23/19 Stop Date: 08/02/19 Status: Ordered Quantity: 20.0 Unit: capsule Repeat number: 1 Mirena 52 mg intrauteral device 1 each = 52 mg, Once, each, 0 Refills, Maintenance, 02/22/11 10:10:26 AM EDT Start Date: 02/22/11 Status: Ordered Repeat number: 1 Problem List Condition Confirmation Course Effective Dates Status H ealth Status Informant Abnormal pap smear of cervix NOS Confirmed 04/19/11 Active WINNIE III - Cervical intraepithelial neoplasia grade III with severe dysplasia Confirmed Active Patient Care team information Care Team Personnel Name: Jodie Gomez RN Position: [facility] SN RN Member Role: Primary Care Nurse Care Team Related Persons Name: LLUVIA PERDOMO Insurance Providers Guarantor name: JOAQUIM Health Plan Information #: 1 Payer: [employer] Member Number: NA Policy Number: NA Group Number: NA
--- OUTSIDE RECORDS SUMMARY | 2024-12-17 15:44 | XMS_ITS | Continuity of Care Document ---
Author Organization [facility] Khadijah Tracy [email or web address] [facility] Address [address] [place] [address], [address] [address]- Support Name Relationship Address Phone GURPREET BUNCH mother Unknown Unavailable LLUVIA PERDOMO domestic partner Unknown [facility]available [id number] Date(s): 08/21/24 - 12/06/24 [facility] [email or web address] [facility] [address] [place] [address], [address] [place], [place] [address] Attending Physician: Denis MELGAR, Ramsey Keys Encounter Type: Pre Office Visit Allergies, Adverse Reactions, Alerts No Known Allergies [...] Care team information Care Team Personnel Name: PatriciaJodie lee RN Position: S SN RN Member Role: Primary Care Nurse Care Team Related Persons Name: LLUVIA PERDOMO Insurance Providers Guarantor name: JOAQUIM Health Plan Information #: 1 Payer: [employer] Member Number: [id number] Policy Number: [id number] Group Number: Health Plan Information #: 2 Payer: [employer] Member Number: [id number] Policy Number: [id number] Group Number: NA
== END 2024-12-17 15:11 | disposition home or self-care (01) ==
PROVIDERS: Visit Provider Nurse Practitioner Psychiatric/Mental Health
DX: F11.21 Opioid dependence, in remission (principal)
CPT/HCPCS: 99214

== ENCOUNTER → 2024-12-17 13:35 | Outpatient (BNVA) | payer MEDICAID, SELFPAY | PROVIDERS: Visit Provider Nurse Practitioner Psychiatric/Mental Health | DX: F11.21 Opioid dependence, in remission (principal); Z51.81 Encounter for therapeutic drug level monitoring | CPT/HCPCS: 99212 ==

== ENCOUNTER 2025-01-21 10:04 | Outpatient (AMB) | payer MEDICAID, SELFPAY ==
[2025-01-21 10:08] VITALS: BP 120/80; PULSE 105; O2SAT 98
--- NOTE | 2025-01-21 10:08 | A.OFFVISCC_ITS ---
Vital Signs 01/21/25 10:08 BP 120/80 Blood Pressure Location Lt brachial Position Sitting Pulse 105 H Pulse Source Pulse Oximeter Pulse Oximetry (%) 98 Oxygen Delivery Method Room Air Intake Visit Reasons: MAT Allergies No Known Allergies Allergy (Unknown, Verified 06/09/24 09:17) HPI HPI MAT: Details: Patient presents for follow up Currently prescribed Suboxone 4mg QD Her goal is to continue to taper dose Denies any issues with lower dose Review of Systems Const Reports as per HPI Physical Exam Vital Signs: Last Vital Signs Pulse 105 H 01/21/25 10:08 BP 120/80 01/21/25 10:08 Pulse Ox 98 01/21/25 10:08 Oxygen Delivery Method Room Air 01/21/25 10:08 Const General: cooperative, healthy appearing, comfortable and well groomed Nutritional Appearance: average body habitus Limitations: no limitations Psych Appearance: well kempt Speech and movement: Normal speech and movement present Affect: normal affect Attitude: cooperative Thought process: Normal thought process present Thought content: Normal thought content present Insight: Good insight present (Psych) Judgement: Good judgement present (Psych) [facility] Medical History (Updated 06/18/24 @ 13:35 by Radha Dye CNP) Opioid use disorder Family History Mother Asthma Sister Asthma Social History Alcohol intake: former Assessment & Plan Assessment & Plan (1) Opioid use disorder, severe, in early remission: Code(s): F11.21 - Opioid dependence, in remission Category: Medical Plan: * continue suboxone at 4mg QD * relapse prevention discussion * follow up 2 months Medications: Refilled buprenorphine-naloxone 4-1 mg (Suboxone) 1 film buccal Q24H 30 ea 1RF
--- OUTSIDE RECORDS SUMMARY | 2025-01-21 12:07 | XMS_ITS | Clinical Summary ---
Author Organization [employer] Address [address] [facility] 7t [place] [address] Care Team Providers Care Road Cleaner Name Role Phone Fidel Espinoza MD Primary [...] Date Smoking Tobacco: Every Day Cigarettes 0.3 6.2 Started: 2018 Smokeless Tobacco: Never Tobacco Cessation:Ready [...] Comments HIV Screening 1981 Lipid Panel 1981 Alcohol/Substance Use Screening 1993 Family Planning (PISQ) 1996 Hepatitis C Screening 1999 Hepatitis B Vaccines (1 of 3 - 19+ 3-dose series) 2000 Pneumococcal Vaccine: Pediatrics (0 to 5 Years) and At-Risk Patients (6 to 49) Years) (1 of 2 - PCV) 2000 COVID-19 Vaccine ( - 2023-2 5 season) 2024 Influenza Vaccine (#1) 2024 [...] HPV nRNA E6/E7 Not Detected Not Detected [facility] Comment:Methodology: Transcr iption-Mediated AmplificationThis assay detects E6/E7 viral messenger RNA (mRNA) from 14high-risk HPV types (16,18,31,33,35,39,45,51,52,56,58,59,66,68).Cervical sources are required for HPV testing.If a vaginal source from a patient who has had atotal hysterectomy with removal of cervix wassubmitted, please contact the testing laboratoryfor alternative testing options.For additional information, please refer tohttp://education.Buzzoo/faq/CGQ898g0(This link if provided for information/educational purposes only.)THIS TEST WAS PERFORMED AT:[facility] [place] [phone] KEEN MD SOURCE: SEE NOTE [facility] Comment:None given Report Status: [facility] Clinical Information: SEE NOTE [facility] Comment:None given LMP: SEE NOTE [facility] Comment:NONE GIVEN Prev. PAP: SEE NOTE [facility] Comment:NONE GIVEN Prev. BX: SEE NOTE [facility] Comment:NONE GIVEN Statement Of Adequacy: SEE NOTE [facility] Comment:Satisfactory for swetha luation.Endocervical/transformation zone componentpresent. General Categorization: [facility] Interpretation/Result: SEE NOTE [facility] Comment:Cytology Results: Ne gative for intraepitheliallesion or malignancy. Cytology Comment SEE NOTE [facility] Comment:This Pap test has be en evaluated with computerassisted technology. Shingle Packer: SEE NOTE [facility] Comment:[place], CT(ASCP)CT scre ening location: [address] [address] Review Shingle Packer: TNP [facility] Pathologist TNP [facility] PAP Infection [facility] See Note SEE NOTE [facility] Comment:EXPLANATORY NOTE:The Pap is a screening test for cervical cancer. It isnot a diagnostic test and is subject to false negativeand false positive results. It is most reliable when asatisfactory sample, regularly obtained, is submittedwith relevant clinical findings and history, and whenthe Pap result is evaluated along with historic andcurrent clinical information. 08/05/2024 08/05/2024 Narrative [facility] - 08/08/2024 3:28 PM EDT SEE SCANNED RESULTS IN EMR us Amalia Gómez MD LAB PATHOLOGY ORDERABLES Shayna farfan Result [facility] [address] [place] [address] [phone] * BI Mammogram Screening Tomosynthesis Bilateral (07/31/2024 1:55 PM EDT) Anatomical Region Laterality Modality Breast Bilateral Mammography 07/31/2024 1:55 PM EDT Narrative 08/17/2024 3:03 PM EDT ? [facility] [place] ? [address] ?[place] [address] ? Mammography Report ? Signed ? Patient: Carlita Kim ?MR#: [id number] ?? 18 ? : 1980 ?Acct:[id number] ? Age/Sex: 44 / F ?ADM Date: 09/05/24 ? Loc: HO.MAMMO ? Attending Dr: Fidel Hines MD ? Ordering Physician: Fidel Espinoza MD ?Res ?? ults: 1Negative ? Date of Service: 07/31/24 ?Follow Up: 1 Year From Orig ?? inal Mammogram ? Procedure(s): MM tomosynthesis screening BI ?? Accession Number(s): [id number] ? cc: Fidel Espinoza MD ? EXAMINATION: [...] DD/ 1355 ? TD/TT: 07/31/24 1414 ? Tester Armature Or Fields: ? Procedure Note Donotuseinterpreter, Image - 08/17/2024 [facility] [address] [place] [address] Mammography Report Signed Patient: Carlita KimMR#: [id number] 18 : 1980Acct:[id number] Age/Sex: 44 / FADM Date: 07/31/24 Loc: HO.MAMMO Attending Dr: Fidel Hines MD Ordering Physician: Fidel Espinoza ults: 1Negative Date of Service: 07/31/24Follow Up: 1 Year From Orig inal Mammogram Procedure(s): MM tomosynthesis screening BI Accession Number(s): [id number] cc: Fidel Espinoza MD EXAMINATION: MM SCREENING [...] 08/17/24 1500 DD/ 1355 TD/TT: 07/31/24 1414 Tester Armature Or Fields: Fidel Hines MD IMG BI PROCEDURES Final Result from Last 3 Months or Most Recently Relevant to Health Maintenance Insurance [employer] C3 Care Teams Road Cleaner Relationship Specialty Start Date End Date Fidel Espinoza MD [address] [place] [id number] PCP - General Internal Medicine 05/22/24
== END 2025-01-21 10:26 | disposition home or self-care (01) ==
PROVIDERS: Visit Provider Nurse Practitioner Psychiatric/Mental Health
DX: F11.21 Opioid dependence, in remission (principal)
CPT/HCPCS: 99213

== ENCOUNTER → 2025-01-21 10:04 | Outpatient (BNVA) | payer MEDICAID, SELFPAY | PROVIDERS: Visit Provider Nurse Practitioner Psychiatric/Mental Health | DX: F11.20 Opioid dependence, uncomplicated (principal) | CPT/HCPCS: 99212 ==

== ENCOUNTER 2025-02-24 09:54 | Outpatient (AMB) | payer MEDICAID, SELFPAY ==
[2025-02-24 09:59] VITALS: BP 136/89; PULSE 106; O2SAT 95; BMI 26.2
--- NOTE | 2025-02-24 09:59 | A.OFFVIS_ITS ---
Vital Signs 02/24/25 09:59 Height 5 ft 6 in Weight 162 lb 4.163 oz BMI 26.2 BP 136/89 Blood Pressure Location Lt brachial Position Sitting Pulse 106 H Pulse Source Pulse Oximeter Pulse Oximetry (%) 95 Oxygen Delivery Method Room Air Intake Visit Reasons: abscess left axilla Intake Note: Patient referred by pcp Dr. Healy for abscess on Lt axilla. Completed Bactrim DS course. Patient c/o:occasional soreness Allergies No Known Allergies Allergy (Unknown, Verified 02/24/25 10:01) HPI Comments Details: Patient presents for evaluation of a resolving infected sebaceous cyst of the left axilla. She has had a cyst here for many years time. Few days ago it became irritated/inflamed, red and painful. She was given antibiotics by medical doctor. She presents here for follow-up. She has no such cyst issues elsewhere. Chart was reviewed and patient evaluated [facility] Medical History Acute vaginitis Moderate cervical dysplasia Abnormal cervical Papanicolaou smear Opioid use disorder Family History Mother Asthma Sister Asthma Social History (Updated 02/24/25 @ 10:03 by Sylvie Bloom CMA) Alcohol intake: former Patient Tobacco Use Status: Current everyday Tobacco user Cigarettes Per Day: 2 Physical Exam Vital Signs: Last Vital Signs Pulse 106 H 02/24/25 09:59 BP 136/89 02/24/25 09:59 Pulse Ox 95 02/24/25 09:59 Oxygen Delivery Method Room Air 02/24/25 09:59 BMI result Body Mass Index 26.2 Extrem Other: Left axilla demonstrates a resolving infected sebaceous cyst/carbuncle type lesion. No evidence of any fluctuance or abscess at this time. Assessment & Plan Assessment & Plan (1) Infected sebaceous cyst: Code(s): L72.3 - Sebaceous cyst; L08.9 - Local infection of the skin and subcutaneous tissue, unspecified Category: Surgical Plan At present, no acute surgical intervention required. Once the inflammatory process has resolved completely, I mentioned to the patient we could excise this process if it continues to be symptomatic. At present we will treat her c onservatively. She has been given local instructions and will otherwise follow- up p.r.n.. All questions answered. Coding Level of Care Code New Pt Level 4 (23042) Diagnoses Infected sebaceous cyst L72.3; L08.9
--- OUTSIDE RECORDS SUMMARY | 2025-02-24 11:34 | XMS_ITS | Clinical Summary ---
Author Organization [employer] Address [address] [facility] 7t [place] [address] Care Team Providers Care Bakery Pastry Internship Name Role Phone Fidel Espinoza MD Primary Care Prov ider Allergies No known active allergies Medications Ventolin HFA 108 (90 Base) MCG/ACT inhaler INHALE 2 PUFFS EVERY 6 HOURS IF NEEDED FOR WHEEZING. 18 g 07/30/20 24 Active Suboxone 8-2 MG SL film USE 1 FILM BUCCALLY 2 TIMES A DAY 07/18/20 24 Active cloNIDine (Catapres) 0.1 MG tablet Take 0.1 mg by mouth 2 times daily. 02/25/20 24 Active docusate sodium (Colace) 100 MG capsule Take 100 mg by mouth 2 times daily. 06/18/20 24 Active hydrOXYzine HCl (Atarax) 50 MG tablet Take 50 mg by mouth 2 times daily. 07/02/20 24 Active Levonorgestrel 20 MCG/DAY intrauterine device 1 each by Intrauterine route 1 (one) time. 02/23/20 11 Active mirtazapine (Remeron) 7.5 MG tablet Take 7.5 mg by mouth at bedtime. 02/22/20 24 Active polyethylene glycol, PEG, 3350 (Glycolax) 17 GM/SCOOP powder DISSOLVE 17 GM AND TAKE BY MOUTH DAILY 02/15/20 24 Active Rozerem 8 MG tablet Take 8 mg by mouth if needed at bedtime for sleep. 05/05/20 24 Active sulfamethoxazole -trimethoprim (Bactrim DS) 800-160 MG tabletIndication s:Abscess of axilla, left Take 1 tablet by mouth 2 times daily for 5 days. 10 tablet 02/07/20 25 025 Active Problems Problem Noted Date Diagnosed Date Encounter for contraceptive management 09/24/202 4 Acute vaginitis 08/19/2024 Assessment & Plan [...] on pathology Abnormal cervical Papanicolaou smear 04/19/2011 Encounters Date Type Department Care Team Description 02/06/2025 10:20 AM EDT Office Visit [facility] [address] [place] [phone] Zaria Healy MD Abscess of axilla, left (Primary Dx) 02/06/2025 Population Health Risk Score [facility] (C3) Department [address] [place] [address], [place] [phone] Provider, Population Health Generic 02/06/2025 Travel 02/06/2025 Telephone [facility] [address] [place] [address] Fidel Espinoza MD Nurse Triage from Last 3 Months Immunizations Name Administration Dates Next Due Influenza [...] Sign Reading Time Taken Comments Blood Pressure 132/79 02/06/2025 10:07 AM EDT Pulse 81 02/06/2025 10:07 AM EDT Temperature 36.7 ??C (98 ??F) 02/06/2025 10:07 AM EDT Respiratory Rate 17 02/06/2025 10:07 AM EDT Oxygen Saturation 98% 08/19/2024 11:12 AM EDT Inhaled Oxygen Concentration - - Weight 74.8 kg (165 lb) 02/06/2025 10:07 AM EDT Height 167.6 cm (5' 6 ) 02/06/2025 10:07 AM EDT Body Mass Index 26.63 02/06/2025 10:07 AM EDT Plan of Treatment Health Maintenance [...] 05/22/2024 SDOH Screening 05/22/2025 05/22/2024 Tobacco Screening 02/06/2026 02/06/2025 Mammogram 07/31/2026 07/31/2024 Cervical Cancer Screening 08/05/2029 [...] HPV nRNA E6/E7 Not Detected Not Detected [facility] Comment:Methodology: Transcr iption-Mediated AmplificationThis assay detects E6/E7 viral messenger RNA (mRNA) from 14high-risk HPV types (16,18,31,33,35,39,45,51,52,56,58,59,66,68).Cervical sources are required for HPV testing.If a vaginal source from a patient who has had atotal hysterectomy with removal of cervix wassubmitted, please contact the testing laboratoryfor alternative testing options.For additional information, please refer tohttp://education.Incentive Targeting/faq/VOO507s7(This link if provided for information/educational purposes only.)THIS TEST WAS PERFORMED AT:[facility] [address] [phone] KEEN MD SOURCE: SEE NOTE [facility] Comment:None given Report Status: [facility] Clinical Information: SEE NOTE [facility] Comment:None given LMP: SEE NOTE [facility] Comment:NONE GIVEN Prev. PAP: SEE NOTE [facility] Comment:NONE GIVEN Prev. BX: SEE NOTE [facility] Comment:NONE GIVEN Statement Of Adequacy: SEE NOTE [facility] Comment:Satisfactory for swetha luation.Endocervical/transformation zone componentpresent. General Categorization: [facility] Interpretation/Result: SEE NOTE [facility] Comment:Cytology Results: Ne gative for intraepitheliallesion or malignancy. Cytology Comment SEE NOTE [facility] Comment:This Pap test has be en evaluated with computerassisted technology. Wafer Batter Mixer: SEE NOTE [facility] Comment:[place], CT(ASCP)CT scre ening location: [address] [address] Review Wafer Batter Mixer: [facility] Pathologist [facility] PAP Infection [facility] See Note SEE NOTE [facility] Comment:EXPLANATORY NOTE:The Pap is a screening test for cervical cancer. It isnot a diagnostic test and is subject to false negativeand false positive results. It is most reliable when asatisfactory sample, regularly obtained, is submittedwith relevant clinical findings and history, and whenthe Pap result is evaluated along with historic andcurrent clinical information. 08/05/2024 08/05/2024 Narrative [facility] - 08/08/2024 3:28 PM EDT SEE SCANNED RESULTS IN EMR us Amalia Gómez MD LAB PATHOLOGY ORDERABLES Shayna l Result [facility] [address] [place] [address] [phone] * BI Mammogram Screening Tomosynthesis Bilateral (07/31/2024 1:55 PM EDT) Anatomical Region Laterality Modality Breast Bilateral Mammography 07/31/2024 1:55 PM EDT Narrative 08/17/2024 3:03 PM EDT ? [facility] ? [address] ?[place] [address] ? Mammography Report ? Signed ? Patient: Carlita Kim ?MR#: [id number] ?? 19 ? : 1980 ?Acct:[id number] ? Age/Sex: 44 / F ?ADM Date: 07/31/24 ? Loc: HO.MAMMO ? Attending Dr: Fidel Hines MD ? Ordering Physician: Fidel Espinoza MD ?Res ?? ults: 1Negative ? Date of Service: 07/31/24 ?Follow Up: 1 Year From Orig ?? inal Mammogram ? Procedure(s): MM tomosynthesis screening BI ?? Accession Number(s): [id number] ? cc: Fidel Espinoza MD ? EXAMINATION: [...] ??Emely Javier DO ??08/17/2024 03:00 PM EDT ? Dictated By: ?Emely Javier DO ? Signed By: ?<Electronically signed by Emely aJvier, DO in OV> ? 08/17/24 1500 ? DD/ 1355 ? TD/TT: 07/31/24 1414 ? Crystal Finisher: ? Procedure Note John Woodruff - 08/17/2024 [facility] [address] [place] [address] Mammography Report Signed Patient: Batool Kim#: [id number] 18 : 1980Acct:[id number] Age/Sex: 44 / FADM Date: 07/31/24 Loc: HO.MAMMO Attending Dr: Fidel Hines MD Ordering Physician: Fidel Espinoza ults: 1Negative Date of Service: 07/31/24Follow Up: 1 Year From Orig inal Mammogram Procedure(s): MM tomosynthesis screening BI Accession Number(s): [id number] cc: Fidel Espinoza MD EXAMINATION: MM SCREENING [...] 08/17/24 1500 DD/ 1355 TD/TT: 07/31/24 1414 Crystal Finisher: Fidel Hines MD IMG BI PROCEDURES Final Result from Last 3 Months or Most Recently Relevant to Health Maintenance [place] [address] [place] [address] C3 Care Teams Bakery Pastry Internship Relationship Specialty Start Date End Date Fidel Espinoza MD [address] [place] [id number] PCP - General Internal Medicine 05/22/24
== END 2025-02-24 10:12 | disposition home or self-care (01) ==
LOC: HO.HGS 09:54
PROVIDERS: Visit Provider Surgery
DX: L72.3 Sebaceous cyst (principal); L08.9 Local infection of the skin and subcutaneous tissue, unspecified
CPT/HCPCS: 99204

== ENCOUNTER → 2025-02-24 09:54 | Outpatient (BNVA) | payer MEDICAID, SELFPAY | PROVIDERS: Visit Provider Surgery | DX: Z09 Encounter for follow-up examination after completed treatment for conditions other than malignant neoplasm (principal); Z87.2 Personal history of diseases of the skin and subcutaneous tissue | CPT/HCPCS: 99202 ==

== ENCOUNTER 2025-03-20 11:18 | Outpatient (AMB) | payer MEDICAID, SELFPAY ==
[2025-03-20 11:32] VITALS: BP 120/78; PULSE 90; BMI 25.2
--- NOTE | 2025-03-20 11:32 | MHC.OFFVIS ---
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 She is working on tapering off and will let us know if needs Sublocade. [facility] Medical History Acute vaginitis Moderate cervical dysplasia Abnormal cervical Papanicolaou smear Opioid use disorder Family History Mother Asthma Sister Asthma Social History Alcohol intake: former Patient Tobacco Use Status: Current everyday Tobacco user Cigarettes Per Day: 2 Review of Systems Const All systems reviewed & are unremarkable except as noted in HPI and below Physical Exam Vital Signs: Last Vital Signs Pulse 90 03/20/25 11:32 BP 120/78 03/20/25 11:32 BMI result Body Mass Index 25.2 Const General: cooperative Results AMB 14 Panel Urine Drug Screen Urine Marijuana (THC) Last Edit by Gerardo John CMA on 03/20/25 11:47 Urine Cocaine Last Edit by Gerardo John CMA on 03/20/25 11:47 Urine Morphine Negative Last Edit by Gerardo John CMA on 03/20/25 11:47 Urine Methamphetamine Negative Last Edit by Gerardo John CMA on 03/20/25 11:47 Urine Amphetamine Negative Last Edit by Gerardo John CMA on 03/20/25 11:47 Urine Benzodiazepine Negative Last Edit by Gerardo John CMA on 03/20/25 11:47 Urine Barbiturates Negative Last Edit by Gerardo John CMA on 03/20/25 11:47 Urine Methadone Negative Last Edit by Gerardo John CMA on 03/20/25 11:47 Urine Buprenorphine Positive Last Edit by Gerardo John CMA on 03/20/25 11:47 Urine Tricyclic Antidepressant Negative Last Edit by Gerardo John CMA on 03/20/25 11:47 Urine MDMA Negative Last Edit by Gerardo John CMA on 03/20/25 11:47 Urine Oxycodone Negative Last Edit by Gerardo John CMA on 03/20/25 11:47 Urine Phencyclidine Negative Last Edit by Gerardo John CMA on 03/20/25 11:47 Urine Propoxyphene Negative Last Edit by Gerardo John CMA on 03/20/25 11:47 AMB Test Urine AMB Test Urine Negative Last Edit by Gerardo John CMA on 03/20/25 11:49 Results Reviewed Results Reviewed: Laboratory Last Values [facility] Clinic Negative 03/20/25 11:35 POC Urine Buprenorphine Positive 03/20/25 11:35 POC Urine Morphine Negative 03/20/25 11:35 POC Urine Oxycodone Negative 03/20/25 11:35 POC Urine Methadone Negative 03/20/25 11:35 POC Urine Propoxyphene Negative 03/20/25 11:35 POC Urine Barbiturates Negative 03/20/25 11:35 POC U Tricyclic Antidpr Negative 03/20/25 11:35 POC Urine PCP Negative 03/20/25 11:35 POC Ur Amphetamines Negative 03/20/25 11:35 POC Ur Methamphetamine Negative 03/20/25 11:35 POC Urine MDMA Negative 03/20/25 11:35 POC Ur Benzodiazepine Negative 03/20/25 11:35 Assessment & Plan Assessment & Plan (1) Opioid use disorder, severe, in early remission: Code(s): F11.21 - Opioid dependence, in remission Category: Medical (2) Insomnia: Comment: Continue 4/1 daily Suboxone ,one month and one refill See in two months Code(s): G47.00 - Insomnia, unspecified Category: Medical Plan Umair,90 Orders: Orders Hepatitis C Antibody Today F11.21 - Opioid dependence, in remission Hepatitis B Surface Ab Qnt Today F11.21 - Opioid dependence, in remission T Spot TB Today F11.21 - Opioid dependence, in remission Syphilis Screen Today F11.21 - Opioid dependence, in remission AMB 14 Panel Urine Drug Screen Today Z51.81 - Encounter for therapeutic drug level monitoring AMB HCG Urine Test Today Z32.02 - Encounter for test, result negative HIV Ab/Ag Today F112.16 - Opioid dependence, in remission Hepatitis A IgG Today - Opioid dependence, in remission Hepatitis B Surface Antigen Today F112.16 - Opioid dependence, in remission Medications: New ramelteon (Rozerem) 8 mg PO BEDTIME PRN 90 tabs 0RF sleep 90 days buprenorphine-naloxone 4-1 mg (Suboxone) place 1 strip/tab under (each) side of tongue 1 film sublingual Q24H 30 ea 1RF 30 days Coding Level of Care Code Est Pt Level 3 (52138) Diagnoses Opioid use disorder, severe, in early remission F112.16 Insomnia G47.00
--- OUTSIDE RECORDS SUMMARY | 2025-03-20 12:13 | XMS_ITS | Clinical Summary ---
Author Organization [employer] Address [address] [facility] 7t [place] [address] Care Team Providers Care Nozzle And Sleeve Worker Name Role Phone Fidel Espinoza MD Primary [...] Description 02/06/2025 10:20 AM EDT Office Visit [facility] [address] [place] [address] Zaria Healy MD Abscess of axilla, left (Primary Dx) 02/06/2025 Population Health Risk Score Community Care [facility] (C3) Department [address] [phone] Provider, Population Health Generic 02/06/2025 Travel 02/06/[address] [facility] [address] [place] [address] Fidel Espinoza MD Nurse Triage from Last [...] Date Smoking Tobacco: Every Day Cigarettes 0.3 6.3 Started: 2018 Smokeless Tobacco: Never Tobacco Cessation:Ready [...] of 2 - PCV) 2000 COVID-19 Vaccine (1 - 2023-2 5 season) 2024 Influenza Vaccine [...] HPV nRNA E6/E7 Not Detected Not Detected [facility] Comment:Methodology: Transcr iption-Mediated AmplificationThis assay detects E6/E7 viral messenger RNA (mRNA) from 14high-risk HPV types (16,18,31,33,35,39,45,51,52,56,58,59,66,68).Cervical sources are required for HPV testing.If a vaginal source from a patient who has had atotal hysterectomy with removal of cervix wassubmitted, please contact the testing laboratoryfor alternative testing options.For additional information, please refer tohttp://education.indidebt/faq/ZPA770w8(This link if provided for information/educational purposes only.)THIS TEST WAS PERFORMED AT:[employer] [place] [phone] KEEN MD SOURCE: SEE NOTE [facility] Comment:None given Report Status: [facility] Clinical Information: SEE NOTE [facility] Comment:None given LMP: SEE NOTE [facility] Comment:NONE GIVEN Prev. PAP: SEE NOTE [facility] Comment:NONE GIVEN Prev. BX: SEE NOTE [facility] Comment:NONE GIVEN Statement Of Adequacy: SEE NOTE [facility] Comment:Satisfactory for swetha luation.Endocervical/transformation zone componentpresent. General Categorization: [facility] Interpretation/Result: SEE NOTE [facility] Comment:Cytology Results: Ne gative for intraepitheliallesion or malignancy. Cytology Comment SEE NOTE [facility] Comment:This Pap test has be en evaluated with computerassisted technology. Data Assistant: SEE NOTE [facility] Comment:MAGAÑA, CT(ASCP)CT scre ening location: [place] [address] Review Data Assistant: [facility] Pathologist [facility] PAP Infection [facility] See Note SEE NOTE [facility] Comment:EXPLANATORY NOTE:The Pap is a screening test for cervical cancer. It isnot a diagnostic test and is subject to false negativeand false positive results. It is most reliable when asatisfactory sample, regularly obtained, is submittedwith relevant clinical findings and history, and whenthe Pap result is evaluated along with historic andcurrent clinical information. 08/05/2024 08/05/2024 Narrative [facility] - 08/08/2024 3:28 PM EDT SEE SCANNED RESULTS IN EMR us Amalia Gómez MD LAB PATHOLOGY ORDERABLES Shayna farfan Result [facility] [address] [place] [address] [phone] * BI Mammogram Screening Tomosynthesis Bilateral (07/31/2024 1:55 PM EDT) Anatomical Region Laterality Modality Breast Bilateral Mammography 07/31/2024 1:55 PM EDT Narrative 08/17/2024 3:03 PM EDT ? [facility] ? [address] ?[place] [address] ? Mammography Report ? Signed ? Patient: Kim,Carlita ?MR#: [id number] ?? 18 ? : 1980 ?Acct:[id number] ? Age/Sex: 44 / F ?ADM Date: 07/31/24 ? Loc: HO.MAMMO ? Attending Dr: Fidel Hines MD ? Ordering Physician: Fidel Espinoza MD ?Res ?? ults: 1Negative ? Date of Service: 07/31/24 ?Follow Up: 1 Year From Orig ?? inal Mammogram ? Procedure(s): MM tomosynthesis screening BI ?? Accession Number(s): [id number] ? cc: Fidel Espinoza MD ? EXAMINATION: [...] DD/ 1355 ? TD/TT: 07/31/24 1414 ? Ship Surveyor: ? Procedure Note John Woodruff - 08/17/2024 [place] [facility] [address] [place] [address] Mammography Report Signed Patient: Batool Kim#: [id number] 18 : 1980Acct:[id number] Age/Sex: 44 / FADM Date: 07/31/24 Loc: HO.MAMMO Attending Dr: Fidel Hines MD Ordering Physician: Fidel Espinoza ults: 1Negative Date of Service: 07/31/24Follow Up: 1 Year From Orig ina Mammogram Procedure(s): MM tomosynthesis screening BI Accession Number(s): [id number] cc: Fidel Espinoza MD EXAMINATION: MM SCREENING [...] 08/17/24 1500 DD/ 1355 TD/TT: 07/31/24 1414 Ship Surveyor: Fidel Hines MD IMG BI PROCEDURES Final Result from Last 3 Months or Most Recently Relevant to Health Maintenance Insurance [address] [place], [place] [address] C3 Care Teams Nozzle And Sleeve Worker Relationship Specialty Start Date End Date Fidel Espinoza MD [address] [place] [address] PCP - General Internal Medicine 05/22/24
== END 2025-03-20 13:46 | disposition home or self-care (01) ==
LOC: HO.HCC 11:18
PROVIDERS: Visit Provider Internal Medicine
DX: F11.21 Opioid dependence, in remission (principal); G47.00 Insomnia, unspecified; Z51.81 Encounter for therapeutic drug level monitoring; Z32.02 Encounter for pregnancy test, result negative
CPT/HCPCS: 99213

== ENCOUNTER → 2025-03-20 11:18 | Outpatient (BNVA) | payer MEDICAID, SELFPAY | PROVIDERS: Visit Provider Internal Medicine | DX: F11.21 Opioid dependence, in remission (principal); G47.00 Insomnia, unspecified; Z51.81 Encounter for therapeutic drug level monitoring | CPT/HCPCS: 80307; 81025; 99212 ==

== ENCOUNTER 2025-05-22 11:20 | Outpatient (AMB) | payer MEDICAID, SELFPAY ==
[2025-05-22 11:24] VITALS: PULSE 83; O2SAT 99; BMI 27.6
--- NOTE | 2025-05-22 11:24 | MHC.OFFVIS ---
Vital Signs 05/22/25 11:24 Height 5 ft 6 in Weight 171 lb BMI 27.6 Pulse 83 Pulse Source Pulse Oximeter Pulse Oximetry (%) 99 Oxygen Delivery Method Room Air Intake Visit Reasons: MAT Allergies No Known Allergies Allergy (Unknown, Verified 05/22/25 11:25) HPI HPI MAT: Details: She has no complaints and is doing well. [facility] Medical History Acute vaginitis Moderate cervical dysplasia Abnormal cervical Papanicolaou smear Opioid use disorder Family History Mother Asthma Sister Asthma Social History Alcohol intake: former Patient Tobacco Use Status: Current everyday Tobacco user Cigarettes Per Day: 2 Review of Systems Const All systems reviewed & are unremarkable except as noted in HPI and below Physical Exam Vital Signs: Last Vital Signs Pulse 83 05/22/25 11:24 Pulse Ox 99 05/22/25 11:24 Oxygen Delivery Method Room Air 05/22/25 11:24 BMI result Body Mass Index 27.6 Const General: cooperative Assessment & Plan Assessment & Plan (1) Opioid use disorder, severe, in early remission: Comment: She is doing well. Code(s): F11.21 - Opioid dependence, in remission Category: Medical Plan: Continue Suboxone. Medications: New buprenorphine-naloxone 4-1 mg (Suboxone) place 1 strip/tab under (each) side of tongue 1 film sublingual Q24H 30 ea 1RF 30 days acamprosate 666 mg (2 x 333 mg) PO TID 180 tabs 5RF 30 days Coding Level of Care Code Est Pt Level 3 (78647) Diagnoses Opioid use disorder, severe, in early remission F11.21
--- OUTSIDE RECORDS SUMMARY | 2025-05-22 12:32 | XMS_ITS | Clinical Summary ---
Author Organization [employer] Address [address] [facility] 7[address] [place] [address] Care Team Providers Care Face Hardener Name Role Phone Fidel Espinoza MD Primary [...] mouth 2 times daily. 06/18/20 24 Active Levonorgestrel 20 MCG/DAY intrauterine device [...] at bedtime for sleep. 05/05/20 24 Active hydrOXYzine HCl (Atarax) 50 MG tablet TAKE 1 TABLET BY MOUTH TWICE A DAY 180 tablet 3 05/08/20 25 Active hydrOXYzine HCl (Atarax) 50 MG tablet Take 50 mg by mouth 2 times daily. 07/02/20 24 2024 Discontinued Active Problems Problem Noted Date Diagnosed Date Encounter for contraceptive management Acute vaginitis 08/19/2024 Assessment & Plan (08/19/2024 [...] Encounters Date Type Department Care Team Description 05/08/2025 Refill [facility] [address] [place] [address] Fidel Espinoza MD from Last 3 Months Immunizations Immunization Administration Dates Next Due Influenza Injectable Quadriv [...] Date Smoking Tobacco: Every Day Cigarettes 0.3 6.5 Started: 2018 Smokeless Tobacco: Never Tobacco Cessation:Ready [...] 81 02/06/2025 10:07 AM EDT Temperature 36.7 C (98 F) 02/06/2025 10:07 AM EDT Respiratory Rate 17 [...] Comments HIV Screening 1981 Lipid Panel 1981 Disability Screening 1981 Alcohol/Substance Use Screening 1993 Family Planning (PISQ) 1996 Hepatitis C Screening 1999 Hepatitis B Vaccines (1 of 3 - 19+ 3-dose series) 2000 Pneumococcal Vaccine: Pediatrics (0 to 5 Years) and At-Risk Patients (6 to 49) Years (1 of 2 - PCV) 2000 COVID-19 Vaccine ( - 2023-2 5 season) 2024 Depression Screening 05/22/2025 05/22/2024, 05/22/2024 SDOH Screening 05/22/2025 05/22/2024 Influenza Vaccine (Season Ended) 2025 08/19/2019 Tobacco Screening 02/06/2026 02/06/2025 Mammogram 07/31/2026 07/31/2024 [...] patient's age to complete this topic Meningococcal B Vaccine Aged Out No l onger eligible based on patient's age to complete [...] HPV nRNA E6/E7 Not Detected Not Detected [facility] Comment:Methodology: Transcr iption-Mediated AmplificationThis assay detects E6/E7 viral messenger RNA (mRNA) from 14high-risk HPV types (16,18,31,33,35,39,45,51,52,56,58,59,66,68).Cervical sources are required for HPV testing.If a vaginal source from a patient who has had atotal hysterectomy with removal of cervix wassubmitted, please contact the testing laboratoryfor alternative testing options.For additional information, please refer tohttp://education.[employer]/faq/CKX736b0(This link if provided for information/educational purposes only.)THIS TEST WAS PERFORMED AT:[employer] [place] [phone] KEEN MD SOURCE: SEE NOTE [facility] Comment:None given Report Status: TNP [facility] Clinical Information: SEE NOTE [facility] Comment:None given LMP: SEE NOTE [facility] Comment:NONE GIVEN Prev. PAP: SEE NOTE [facility] Comment:NONE GIVEN Prev. BX: SEE NOTE [facility] Comment:NONE GIVEN Statement Of Adequacy: SEE NOTE [facility] Comment:Satisfactory for swetha luation.Endocervical/transformation zone componentpresent. General Categorization: [facility] Interpretation/Result: SEE NOTE [facility] Comment:Cytology Results: Ne gative for intraepitheliallesion or malignancy. Cytology Comment SEE NOTE [facility] Comment:This Pap test has be en evaluated with computerassisted technology. Chicken Cutter: SEE NOTE [facility] Comment:MAGAÑA, CT(ASCP)CT scre ening location: [place] [address] Review Chicken Cutter: [facility] Pathologist [facility] PAP Infection [facility] See Note SEE NOTE [facility] Comment:EXPLANATORY NOTE:The Pap is a screening test for cervical cancer. It isnot a diagnostic test and is subject to false negativeand false positive results. It is most reliable when asatisfactory sample, regularly obtained, is submittedwith relevant clinical findings and history, and whenthe Pap result is evaluated along with historic andcurrent clinical information. 08/05/2024 08/05/2024 Narrative [facility] - 08/08/2024 3:28 PM EDT SEE SCANNED RESULTS IN EMR us Amalia Gómez MD LAB PATHOLOGY ORDERABLES Shayna farfan Result [facility] [address] [place] [address] [phone] * BI Mammogram Screening Tomosynthesis Bilateral (07/31/2024 1:55 PM EDT) Anatomical Region Laterality Modality Breast Bilateral Mammography 07/31/2024 1:55 PM EDT Narrative 08/17/2024 3:03 PM EDT [facility] [address] [place] [address] [place] [address] Mammography Report Signed Patient: Carlita Kim MR#: [id number] 18 : 1980 Acct:[id number] Age/Sex: 44 / F ADM Date: 07/31/24 Loc: HO.MAMMO Attending Dr: Fidel Hines MD Ordering Physician: Fidel Espinoza MD Res ults: 1Negative Date of Service: 07/31/24 Follow Up: 1 Year From Orig inal Mammogram Procedure(s): MM tomosynthesis screening BI Accession Number(s): [id number] cc: Fidel Espinoza MD EXAMINATION: MM SCREENING [...] 08/17/24 1500 DD/ 1355 TD/TT: 07/31/24 1414 Requirements Manager: Procedure Note Donotuseinterpreter, Image - 08/17/2024 [place] [facility] [address] [place] [address] Mammography Report Signed Patient: Carlita KimMR#: [id number] 18 : 1980Acct:[id number] Age/Sex: 44 / FADM Date: 07/31/24 Loc: HO.MAMMO Attending Dr: Fidel Hines MD Ordering Physician: Fidel Espinoza ults: 1Negative Date of Service: 07/31/24Follow Up: 1 Year From Orig inal Mammogram Procedure(s): MM tomosynthesis screening BI Accession Number(s): [id number] cc: Fidel Espinoza MD EXAMINATION: MM SCREENING [...] 08/17/24 1500 DD/ 1355 TD/TT: 07/31/24 1414 Requirements Manager: us Fidel Hines MD IMG BI PROCEDURES Final Result from Last 3 Months or Most Recently Relevant to Health Maintenance [facility] Care Teams Face Hardener Relationship Specialty Start Date End Date Fidel Espinoza MD [address] [place] [phone] PCP - General Internal Medicine 05/22/24
== END 2025-05-22 11:38 | disposition home or self-care (01) ==
LOC: HO.HCC 11:21
PROVIDERS: Visit Provider Internal Medicine
DX: F11.21 Opioid dependence, in remission (principal)
CPT/HCPCS: 99213

== ENCOUNTER → 2025-05-22 11:20 | Outpatient (BNVA) | payer MEDICAID, SELFPAY | PROVIDERS: Visit Provider Internal Medicine | DX: F11.21 Opioid dependence, in remission (principal) | CPT/HCPCS: 99212 ==

== ENCOUNTER 2025-07-20 11:42 | Outpatient (AMB) | payer MEDICAID, SELFPAY ==
[2025-07-20 11:46] VITALS: BP 138/84; PULSE 84; O2SAT 98; BMI 26.5
--- NOTE | 2025-07-20 11:46 | MHC.OFFVIS ---
Vital Signs 07/20/25 11:46 Height 5 ft 6 in Weight 164 lb BMI 26.5 BP 138/84 Pulse 84 Pulse Oximetry (%) 98 Intake Visit Reasons: MAT Allergies No Known Allergies Allergy (Unknown, Verified 07/20/25 11:47) HPI HPI MAT: Details: She is doing well on Suboxone 4/1 mg daily which she splits. She is working on tapering. She also takes acamprosate and is not drinking alcohol. She has anxiety and hydroxyzine is not helping. [facility] Medical History Anxiety Acute vaginitis Moderate cervical dysplasia Abnormal cervical Papanicolaou smear Opioid use disorder Family History Mother Asthma Sister Asthma Social History Alcohol intake: former Patient Tobacco Use Status: Current everyday Tobacco user Cigarettes Per Day: 2 Review of Systems Const All systems reviewed & are unremarkable except as noted in HPI and below Physical Exam Vital Signs: Last Vital Signs Pulse 84 07/20/25 11:46 BP 138/84 07/20/25 11:46 Pulse Ox 98 07/20/25 11:46 BMI result Body Mass Index 26.5 Const General: cooperative Assessment & Plan Assessment & Plan (1) Opioid use disorder, severe, in early remission: Comment: She is doing well. Code(s): F11.21 - Opioid dependence, in remission Category: Medical Plan: Continue Suboxone taper. Buspar 5 mg po tid prn anxiety See therapist and psychiatrist. Continue acamprosate See in two months Orders: Referrals Counseling Referral F11.21 - Opioid dependence, in remission, F41.9 - Anxiety disorder, unspecified Medications: New buprenorphine-naloxone 4-1 mg (Suboxone) place 1 strip/tab under (each) side of tongue 1 film sublingual Q24H 30 ea 1RF 30 days buspirone 5 mg PO TID PRN 90 tabs 5RF anxiety 30 days Coding Level of Care Code Est Pt Level 3 (19765) Diagnoses Opioid use disorder, severe, in early remission F11.21
--- OUTSIDE RECORDS SUMMARY | 2025-07-20 13:14 | XMS_ITS | Clinical Summary ---
Author Organization [employer] Address [address] [facility] 7t [place] [address] Care Team Providers Care Molder Meat Name Role Phone Fidel Espinoza MD Primary [...] needed at bedtime for sleep. 4 Active hydrOXYzine HCl (Atarax) 50 MG tablet TAKE 1 TABLET BY MOUTH TWICE A DAY 180 tablet 3 5 Active Active Problems Problem Noted Date Diagnosed [...] Encounters Date Type Department Care Team Description 07/13/[address] [facility] [address] [place] [address] Fidel Espinoza MD Referral 05/08/[address] [facility] [address] [place] [address] Fidel Espinoza MD from Last [...] Date Smoking Tobacco: Every Day Cigarettes 0.3 6.6 Started: 2018 Smokeless Tobacco: Never Tobacco Cessation:Ready [...] 02/06/2025 10:07 AM EDT Plan of Treatment Upcoming Encounters Date Type Department Care Team (Late st Contact Info) Description 09/16/2025 9:15 AM EDT Office Visit [facility] [address] [place], [place] [phone] Fidel Espinoza MD [address] [place] [address] 10/30/2025 2:00 PM EST Office Visit [facility] [address] [place] [address] TarStefania steiner, OD [address] [place] [address] Health Maintenance Due Date Last Done Comments HIV Screening 1981 Lipid Panel 1981 Disability Screening 1981 Alcohol/Substance Use Screening 1993 Family Planning (PISQ) 1996 HPV Vaccines (1 - 3-dose series) 1996 Hepatitis C Screening 1999 Hepatitis B Vaccines (1 of 3 - 19+ 3-dose series) 2000 Pneumococcal Vaccine: Pediatrics (0 to 5 Years) and At-Risk Patients (6 to 49) Years (1 of 2 - PCV) 2000 COVID-19 Vaccine ( - 2023-2 5 season) 2024 Depression Screening 05/22/2025 05/22/2024, 05/22/2024 SDOH Screening 05/22/2025 05/22/2024 Influenza Vaccine (#1) 2025 08/19/2019 Tobacco Screening 02/06/2026 02/06/2025 Mammogram [...] HPV nRNA E6/E7 Not Detected Not Detected [facility] Comment:Methodology: Transcr iption-Mediated AmplificationThis assay detects E6/E7 viral messenger RNA (mRNA) from 14high-risk HPV types (16,18,31,33,35,39,45,51,52,56,58,59,66,68).Cervical sources are required for HPV testing.If a vaginal source from a patient who has had atotal hysterectomy with removal of cervix wassubmitted, please contact the testing laboratoryfor alternative testing options.For additional information, please refer tohttp://education.[employer]/faq/CHV306h4(This link if provided for information/educational purposes only.)THIS TEST WAS PERFORMED AT:[employer] [address] [phone] KEEN MD SOURCE: SEE NOTE [facility] Comment:None given Report Status: [facility] Clinical Information: SEE NOTE [facility] Comment:None given LMP: SEE NOTE [facility] Comment:NONE GIVEN Prev. PAP: SEE NOTE [facility] Comment:NONE GIVEN Prev. BX: SEE NOTE [facility] Comment:NONE GIVEN Statement Of Adequacy: SEE NOTE [facility] Comment:Satisfactory for swetha luation.Endocervical/transformation zone componentpresent. General Categorization: [facility] Interpretation/Result: SEE NOTE [facility] Comment:Cytology Results: Ne gative for intraepitheliallesion or malignancy. Cytology Comment SEE NOTE [facility] Comment:This Pap test has be en evaluated with computerassisted technology. Merchandise Adjustment Clerk: SEE NOTE [facility] Comment:MAGAÑA, CT(ASCP)CT scre ening location: [address] [address] Review Merchandise Adjustment Clerk: [facility] Pathologist [facility] PAP Infection [facility] See Note SEE [facility] Comment:EXPLANATORY NOTE:The Pap is a screening test for cervical cancer. It isnot a diagnostic test and is subject to false negativeand false positive results. It is most reliable when asatisfactory sample, regularly obtained, is submittedwith relevant clinical findings and history, and whenthe Pap result is evaluated along with historic andcurrent clinical information. 08/05/2024 08/05/2024 Narrative [facility] - 08/08/2024 3:28 PM EDT SEE SCANNED RESULTS IN EMR us Amalia Gómez MD LAB PATHOLOGY ORDERABLES Shayna farfan Result [facility] [address] [place] [address] [phone] * BI Mammogram Screening Tomosynthesis Bilateral (07/31/2024 1:55 PM EDT) Anatomical Region Laterality Modality Breast Bilateral Mammography 07/31/2024 1:55 PM EDT Narrative 08/17/2024 3:03 PM EDT [address] [place] [address] Mammography Report Signed Patient: Carlita Kim MR#: [id number] 18 : 1980 Acct:[id number] Age/Sex: 44 / F ADM Date: 07/31/24 Loc: HO.MAMMO Attending Dr: Fidel Hines MD Ordering Physician: Fidel Espinoza MD Res ults: 1Negative Date of Service: 07/31/24 Follow Up: 1 Year From Orig [facility] Mammogram Procedure(s): MM tomosynthesis screening BI Accession Number(s): [id number] cc: Fidel Espinoza MD EXAMINATION: MM SCREENING [...] Emely Javier DO 08/17/2024 03:00 PM EDT RP Dictated By: Emely Javier DO Signed By: <Electronically signed by Emely Javier DO in OV> 08/17/24 1500 DD/ 1355 TD/TT: 07/31/24 1414 Hardening Machine Operator Helper: Procedure Note Donotuseinterpreter, Image - 08/17/2024 [place] [facility] [address] [place], [place] [address] Mammography Report Signed Patient: Carlita KimMR#: [id number] 18 : 1980Acct:[id number] Age/Sex: 44 / FADM Date: 07/31/24 Loc: HO.MAMMO Attending Dr: Fidel Hines MD Ordering Physician: Fidel Espinoza ults: 1Negative Date of Service: 07/31/24Follow Up: 1 Year From Orig ina Mammogram Procedure(s): MM tomosynthesis screening BI Accession Number(s): [id number] cc: Fidel Espinoza MD EXAMINATION: MM SCREENING [...] Emely Javier DO 08/17/2024 03:00 PM EDT RP Dictated By: Emely Javier DO Signed By: <Electronically signed by Emely Javier DO in OV> 08/17/24 1500 DD/ 1355 TD/TT: 07/31/24 1414 Hardening Machine Operator Helper: Fidel Hines MD IMG BI PROCEDURES Final Result from Last 3 Months or Most Recently Relevant to Health Maintenance [facility] Care Teams Molder Meat Relationship Specialty Start Date End Date Fidel Espinoza MD [address] [place] [phone] PCP - General Internal Medicine 05/22/24
== END 2025-07-20 11:58 | disposition home or self-care (01) ==
LOC: HO.HCC 11:42
PROVIDERS: PCP Internal Medicine; Visit Provider Internal Medicine
DX: F11.21 Opioid dependence, in remission (principal)
CPT/HCPCS: 99213

== ENCOUNTER → 2025-07-20 11:42 | Outpatient (BNVA) | payer MEDICAID, SELFPAY | PROVIDERS: PCP Internal Medicine; Visit Provider Internal Medicine | DX: F11.21 Opioid dependence, in remission (principal) | CPT/HCPCS: 99212 ==

== ENCOUNTER 2025-08-06 10:09 | Outpatient (REF) | payer MEDICAID, SELFPAY ==
--- OUTSIDE RECORDS SUMMARY | 2025-08-06 12:22 | XMS_ITS | Clinical Summary ---
Author Organization [employer] Address [address] [facility] 7t [place] [address] Care Team Providers Care Garland Machine Operator Name Role Phone Fidel Espinoza MD Primary [...] Department Care Team Description 07/13/2025 Telephone [facility] MEDICINE [address] [place] [address] Fidel Espinoza MD Referral 05/08/2025 Refill [facility] [address] [place] [address] Fidel Espinoza MD from Last [...] Date Smoking Tobacco: Every Day Cigarettes 0.3 6.7 Started: 2018 Smokeless Tobacco: Never Tobacco Cessation:Ready [...] 09/16/2025 9:15 AM EDT Office Visit [facility] CH[facility] MED & PEDS [address], [place] [phone] Fidel Espinoza MD [address] [place] [address] 10/30/2025 2:00 PM EST Office Visit [facility] OPTOMETRY [address] [place] [address] TarStefania steiner, OD [address] [place] [address] Health Maintenance Due Date Last Done Comments [...] Years (1 of 2 - PCV) 2000 Depression Screening 05/22/2025 05/22/2024, 05/22/2024 SDOH Screening 05/22/2025 05/22/2024 COVID-19 Vaccine ( - 2023-2 5 season) 2025 Influenza Vaccine (#1) 2025 08/19/2019 Tobacco Screening [...] alternative testing options.For additional information, please refer tohttp://education.SmartyContent/faq/MQU229p1(This link if provided for information/educational purposes only.)THIS TEST WAS PERFORMED AT:[facility] [address] [phone] KEEN MD SOURCE: SEE NOTE [facility] Comment:None given Report Status: [facility] Clinical Information: SEE NOTE [facility] Comment:None given LMP: SEE NOTE [facility] Comment:NONE GIVEN Prev. PAP: SEE NOTE [facility] Comment:NONE GIVEN Prev. BX: SEE NOTE [facility] Comment:NONE GIVEN Statement Of Adequacy: SEE NOTE [facility] Comment:Satisfactory for swetha luation.Endocervical/transformation zone componentpresent. General Categorization: [facility] Interpretation/Result: SEE NOTE [facility] Comment:Cytology Results: Ne gative for intraepitheliallesion or malignancy. Cytology Comment SEE NOTE [facility] Comment:This Pap test has be en evaluated with computerassisted technology. Strategy Execution Consultant: SEE NOTE [facility] Comment:[place], CT(ASCP)CT scre ening location: [address] [address] Review Strategy Execution Consultant: [facility] Pathologist [facility] PAP Infection [facility] See Note SEE [facility] [...] MD LAB PATHOLOGY ORDERABLES Shayna farfan Result [facility] [address] [place] [address] [phone] * BI Mammogram Screening Tomosynthesis Bilateral (07/31/2024 1:55 PM EDT) Anatomical Region Laterality Modality Breast Bilateral Mammography 07/31/2024 1:55 PM EDT Narrative 08/17/2024 3:03 PM EDT [address] [place] [address] Mammography Report Signed Patient: Carlita Kim MR#: [id number] 18 : 1980 Acct:[id number] Age/Sex: 44 / F ADM Date: 07/31/24 Loc: HO.MAMMO Attending Dr: Fidel Hines MD Ordering Physician: Fidel Espinoza MD Res ults: 1Negative Date of Service: 07/31/24 Follow Up: 1 Year From Orig [facility] Mamm[facility] Procedure(s): MM tomosynthesis screening BI Accession Number(s): [id number] cc: Fidel Espinoza MD EXAMINATION: MM SCREENING [...] 08/17/24 1500 DD/ 1355 TD/TT: 07/31/24 1414 Rn Pacu: Procedure Note Donotuseinterpreter, Image - 08/17/[address] [facility] [address] [place], [place] [address] Mammography Report Signed Patient: Carlita KimMR#: [id number] 18 : 1980Acct:[id number] Age/Sex: 44 / FADM Date: 07/31/24 Loc: HO.MAMMO Attending Dr: Fidel Hines MD Ordering Physician: Fidel Espinoza ults: 1Negative Date of Service: 07/31/24Follow Up: 1 Year From Orig ina Mammogram Procedure(s): MM tomosynthesis screening BI Accession Number(s): [id number] cc: Fidel Espinoza MD EXAMINATION: MM SCREENING [...] 08/17/24 1500 DD/ 1355 TD/TT: 07/31/24 1414 Rn Pacu: Fidel Hines MD IMG BI PROCEDURES Final Result from Last 3 Months or Most Recently Relevant to Health Maintenance Insurance [facility] [employer] Care Teams Garland Machine Operator Relationship Specialty Start Date End Date Fidel Espinoza MD [address] [place] [phone] PCP - General Internal Medicine 05/22/24
== END 2025-08-06 10:10 | disposition home or self-care (01) ==
LOC: HO.MAMMO 10:09
PROVIDERS: PCP Internal Medicine; Visit Provider Internal Medicine
DX: Z12.31 Encounter for screening mammogram for malignant neoplasm of breast (principal)
CPT/HCPCS: 77063; 77067

== ENCOUNTER → 2025-08-06 10:20 | Outpatient (BNV) | payer MEDICAID, SELFPAY | PROVIDERS: PCP Internal Medicine; Visit Provider Internal Medicine | DX: Z12.31 Encounter for screening mammogram for malignant neoplasm of breast (principal) | CPT/HCPCS: 77063; 77067 ==

== ENCOUNTER 2025-09-18 11:44 | Outpatient (AMB) | payer MEDICAID, SELFPAY ==
--- NOTE | 2025-09-18 11:48 | A.OFFVIS_ITS ---
Vital Signs 09/18/25 11:49 BP 132/70 Pulse 118 H Pulse Oximetry (%) 97 Intake Visit Reasons: MAT Allergies No Known Allergies Allergy (Unknown, Verified 09/18/25 11:49) HPI Comments Details: History of Present Illness The patient is a 45-year-old female presenting with Opioid Use Disorder. Her treatment regimen includes Suboxone, which she is tolerating well without experiencing any side effects, including constipation. She denies any cravings, and her mood remains stable with no current symptoms of depression. Her vital signs are stable, and she reports that her overall condition has been well- managed under the current treatment plan. Review of Systems - Psychiatric: Denies depression, Reports stable mood - Gastrointestinal: Denies constipation - General: Denies cravings, Reports stable vital signs Physical Exam Results Plan Patient was informed and verbally consented to the use of an ambient scribe for clinic note documentation during this visit. 1. Opioid use, unspecified, uncomplicated F11.90 The patient will maintain her current Suboxone treatment. This plan remains appropriate given the absence of cravings or side effects. Regular follow-ups are scheduled for ongoing assessment. 2. Depression, unspecified F32.A The patient's mood remains stable, and she reports no symptoms of depression. Continued observation is recommended, but no active depression management is necessary at this time. Discussion Notes We discussed the effectiveness of the current Suboxone treatment for Opioid Use Disorder with the patient. She has been adhering well to the regimen without experiencing any significant side effects or cravings. Given her stable status, I advised the continuation of the current plan and reiterated the importance of regular follow-up visits to monitor her condition closely. Additionally, we addressed her stability without symptoms of depression. We agreed to maintain current treatment practices as long as symptoms do not recur. I instructed her to report any changes in her condition or new symptoms immediately. Medical Decision Making The patient's Opioid Use Disorder is being effectively managed with Suboxone, which she tolerates well. The absence of cravings and stable mood indicate the appropriateness of continuing this regimen. No current interventions for depression are necessary as she remains symptom-free. Ensuring continued stability is the treatment goal, and regular follow-up will monitor her status and preemptively address any potential complications. Patient Instructions - Continue taking Suboxone as prescribed. - Attend all scheduled follow-up appointments. - Report any changes in mood, cravings, or any side effects immediately. - Monitor for any signs of depression and alert your healthcare provider if they occur. PFSH Medical History Anxiety Acute vaginitis Moderate cervical dysplasia Abnormal cervical Papanicolaou smear Opioid use disorder Family History Mother Asthma Sister Asthma Social History Alcohol intake: former Patient Tobacco Use Status: Current everyday Tobacco user Cigarettes Per Day: 2 Physical Exam Vital Signs: Last Vital Signs Pulse 118 H 09/18/25 11:49 BP 132/70 09/18/25 11:49 Pulse Ox 97 09/18/25 11:49 Assessment & Plan Assessment & Plan (1) Opioid use disorder, severe, in early remission: Comment: She is doing well. Code(s): F11.21 - Opioid dependence, in remission Category: Medical Plan: na Medications: New buprenorphine-naloxone 4-1 mg (Suboxone) place 1 strip/tab under (each) side of tongue 1 film sublingual Q24H 30 ea 1RF 30 days Coding Level of Care Code Est Pt Level 3 (88638) Diagnoses Opioid use disorder, severe, in early remission F11.21
[2025-09-18 11:49] VITALS: BP 132/70; PULSE 118; O2SAT 97
--- OUTSIDE RECORDS SUMMARY | 2025-09-18 14:06 | XMS_ITS | Clinical Summary ---
Author Organization [employer] Address [address] [facility] 7[address] [place] [address] Care Team Providers Care Automatic Dispenser Mechanic Name Role Phone Fidel Espinoza MD Primary [...] Encounters Date Type Department Care Team Description 09/11/2025 Patient Outreach [facility] MEDICINE [address] [place] [address] Fidel Espinoza MD Pre-visit Planning (Pre visit planning LVM ) 08/06/2025 Orders Only [facility] CHC MED & PEDS [address] [place] [address] Fidel Espinoza MD 07/13/2025 Telephone [facility] MEDICINE [address] [place], [place] [phone] Fidel Espinoza MD Referral from Last 3 Months Immunizations Immunization Administration [...] Date Smoking Tobacco: Every Day Cigarettes 0.3 6.8 Started: 2018 Smokeless Tobacco: Never Tobacco Cessation:Ready [...] Care Team (Late st Contact Info) Description 10/30/2025 2:00 PM EST Office Visit [facility] OPTOMETRY [address] [place] [address] TarkaStefania, OD [address] [place] [address] Health Maintenance Due Date Last Done Comments [...] 05/22/2024 SDOH Screening 05/22/2025 05/22/2024 COVID-19 Vaccine (1 - 2023-2 5 season) 2025 Influenza Vaccine (#1) 2025 08/19/2019 Tobacco Screening 02/06/2026 02/06/2025 Mammogram 08/06/2027 08/06/2025, 07/31/2024 Cervical Cancer Screening 08/05/2029 HPV/Cotest 08/05/2029 [...] Procedure Name Priority Date/Time Associated Diagnosis Comments BI MAMMOGRAM SCREENING TOMOSYNTHESIS BILATERAL Routine 08/06/2025 10:20 AM EDT THINPREP IMAGING PAP AND HPV MRNA E6/E7 Routine 08/05/2024 12:00 AM EDT Bronchitis from Last 3 Months or Most Recently Relevant to Health Maintenance Results * BI Mammogram Screening Tomosynthesis Bilateral (08/06/2025 10:20 AM EDT) Anatomical Region Laterality Modality Breast Bilateral Mammography 08/06/2025 10:2 0 AM EDT Narrative 08/10/2025 6:02 PM EDT [facility] [address] [place], [place] [address] Mammography Report Signed Patient: Carlita Kim MR#: [id number] 18 : 1980 Acct:[id number] Age/Sex: 45 / F ADM Date: 08/06/25 Loc: MAMMO Attending Dr: Fidel Hines MD Ordering Physician: Fidel Espinoza MD Res ults: 1Negative Date of Service: 08/06/25 Follow Up: 1 Year From Orig inal Mammogram Procedure(s): MM tomosynthesis screening BI Accession Number(s): [id number] cc: Fidel Espinoza MD Reason For Exam: SCREENING EXAMINATION: MM SCREENING DIGITAL BREAST TOMOSYNTHESIS, BILATERAL CLINICAL INFORMATION: Screening. Asymptomatic. COMPARISON: Mammography: Comparison is made with available priors TECHNIQUE: Digital breast mammography with tomosynthesis is [...] mammogram. Electronically signed by: Emely Javier DO 08/10/2025 05:59 PM EDT Dictated By: Emely Javier DO Signed By: <Electronically signed by Emely Javier DO in OV> 08/10/25 1759 DD/ 1020 TD/TT: 08/06/25 1040 Soil Engineer: Procedure Note Donotuseinterpreter, Image - 08/10/2025 [place] [facility] [address] [place] [address] Mammography Report Signed Patient: Carlita KimMR#: [id number] 18 : 1980Acct:[id number] Age/Sex: 45 / FADM Date: 08/06/25 Loc: MAMMO Attending Dr: Fidel Hines MD Ordering Physician: Fidel Espinoza ults: 1Negative Date of Service: 08/06/25Follow Up: 1 Year From Orig ina Mammogram Procedure(s): MM tomosynthesis screening BI Accession Number(s): [id number] cc: Fidel Espinoza MD Reason For Exam: SCREENING EXAMINATION: MM SCREENING DIGITAL BREAST TOMOSYNTHESIS, BILATERAL CLINICAL INFORMATION: Screening. Asymptomatic. COMPARISON: Mammography: Comparison is made with available priors TECHNIQUE: Digital breast mammography with tomosynthesis is [...] mammogram. Electronically signed by: Emely Javier DO 08/10/2025 05:59 PM EDT Dictated By: Emely Javier DO Signed By: <Electronically signed by Emely Javier DO in OV> 08/10/25 1759 DD/ 1020 TD/TT: 08/06/25 1040 Soil Engineer: Fidel Hines MD IM BI PROCEDURES Final Result * ThinPrep Imaging Pap and HPV mRNA E6/E7 (08/05/2024 12:00 AM EDT) HPV nRNA E6/E7 Not Detected Not Detected [facility] Comment:Methodology: Transcr iption-Mediated AmplificationThis assay detects E6/E7 viral messenger RNA (mRNA) from 14high-risk HPV types (16,18,31,33,35,39,45,51,52,56,58,59,66,68).Cervical sources are required for HPV testing.If a vaginal source from a patient who has had atotal hysterectomy with removal of cervix wassubmitted, please contact the testing laboratoryfor alternative testing options.For additional information, please refer tohttp://education.[employer]/faq/RKH520s8(This link if provided for information/educational purposes only.)THIS TEST WAS PERFORMED AT:[employer] [address] [phone] KEEN MD SOURCE: SEE NOTE [facility] Comment:None given Report Status: [facility] Clinical Information: SEE NOTE [facility] Comment:None given LMP: SEE NOTE [facility] Comment:NONE GIVEN Prev. PAP: SEE NOTE [facility] Comment:NONE GIVEN Prev. BX: SEE NOTE [facility] Comment:NONE GIVEN Statement Of Adequacy: SEE NOTE [facility] Comment:Satisfactory for swetha luation.Endocervical/transformation zone componentpresent. General Categorization: [facility] Interpretation/Result: SEE NOTE [facility] Comment:Cytology Results: Ne gative for intraepitheliallesion or malignancy. Cytology Comment SEE NOTE [facility] Comment:This Pap test has be en evaluated with computerassisted technology. Storage Administrator: SEE NOTE [facility] Comment:[place], CT(ASCP)CT scre ening location: [address] [address] Review Storage Administrator: [facility] Pathologist [facility] PAP Infection [facility] See Note SEE [facility] Comment:EXPLANATORY NOTE:The Pap is a screening test for cervical cancer. It isnot a diagnostic test and is subject to false negativeand false positive results. It is most reliable when asatisfactory sample, regularly obtained, is submittedwith relevant clinical findings and history, and whenthe Pap result is evaluated along with historic andcurrent clinical information. 08/05/2024 08/05/2024 Narrative [facility] - 08/08/2024 3:28 PM EDT SEE SCANNED RESULTS IN EMR us Amalia Gómez MD LAB PATHOLOGY ORDERABLES Shayna farfan Result [facility] [address] [place] [address] [phone] from Last 3 Months or Most Recently Relevant to Health Maintenance Insurance [employer] Care Teams Automatic Dispenser Mechanic Relationship Specialty Start Date End Date Fidel Espinoza MD [address] [place] [phone] PCP - General Internal Medicine 05/22/24
== END 2025-09-18 12:59 | disposition home or self-care (01) ==
LOC: HO.HCC 11:44
PROVIDERS: PCP Internal Medicine; Visit Provider Internal Medicine
DX: F11.21 Opioid dependence, in remission (principal)
CPT/HCPCS: 99213

== ENCOUNTER → 2025-09-18 11:44 | Outpatient (BNVA) | payer MEDICAID, SELFPAY | PROVIDERS: PCP Internal Medicine; Visit Provider Internal Medicine | DX: F11.21 Opioid dependence, in remission (principal); F32.A Depression, unspecified; Z79.899 Other long term (current) drug therapy | CPT/HCPCS: 99212 ==

== ENCOUNTER 2025-11-16 15:35 | Outpatient (AMB) | payer MEDICAID, SELFPAY ==
[2025-11-16 15:41] VITALS: PULSE 101; O2SAT 99; BMI 23.9
--- NOTE | 2025-11-16 15:41 | A.OFFVISCC_ITS ---
Vital Signs 11/16/25 15:41 Height 5 ft 6 in Weight 148 lb BMI 23.9 Pulse 101 H Pulse Source Pulse Oximeter Pulse Oximetry (%) 99 Oxygen Delivery Method Room Air Intake Visit Reasons: mat visit Allergies No Known Allergies Allergy (Unknown, Verified 11/16/25 15:41) HPI HPI mat visit: Details: She has been needing more dosing with cravings associated with her current relationship status leaving partner of 20 years Review of Systems Const All systems reviewed & are unremarkable except as noted in HPI and below Physical Exam Vital Signs: Last Vital Signs Pulse 101 H 11/16/25 15:41 Pulse Ox 99 11/16/25 15:41 Oxygen Delivery Method Room Air 11/16/25 15:41 BMI result Body Mass Index 23.9 [facility] History Anxiety Acute vaginitis Moderate cervical dysplasia Abnormal cervical Papanicolaou smear Opioid use disorder Family History Mother Asthma Sister Asthma Social History Alcohol intake: former Patient Tobacco Use Status: Current everyday Tobacco user Cigarettes Per Day: 2 Assessment & Plan Assessment & Plan (1) Opioid use disorder, severe, in early remission: Comment: She is doing well. Code(s): F11.21 - Opioid dependence, in remission Category: Medical Plan More stressors and cravings and at low dose Suboxone Increase to bid See in one month Medications: New buprenorphine-naloxone 4-1 mg (Suboxone) place 1 strip/tab under (each) side of tongue 1 film sublingual BID 60 ea 0RF 30 days sertraline 50 mg PO DAILY 30 tabs 3RF 30 days
--- OUTSIDE RECORDS SUMMARY | 2025-11-16 18:36 | XMS_ITS | Clinical Summary ---
Author Organization [employer] Address [address] [facility] 7t [place] [address] Care Team Providers Care Tnt Line Supervisor Name Role Phone Fidel Espinoza MD Primary [...] Encounters Date Type Department Care Team Description 10/30/2025 2:00 PM EST Office Visit [facility] OPTOMETRY [address] [place] [address] TarkaStefania, OD Exotropia, right eye (Primary Dx); Refractive amblyopia of right eye; Hypermetropia, bilateral 10/23/2025 Travel 09/11/2025 Patient Outreach [facility] MEDICINE [address] [place] [address] Fidel Espinoza MD Pre-visit Planning (Pre visit planning LVM ) from Last 3 Months Immunizations Immunization Administration [...] Date Smoking Tobacco: Every Day Cigarettes 0.3 7 Started: 2018 Smokeless Tobacco: Never Tobacco Cessation:Ready [...] Screening 05/22/2025 05/22/2024 COVID-19 Vaccine (1 - 2024-2 6 season) 2025 Influenza Vaccine (#1) 2025 08/19/2019 Tobacco Screening 11/02/2026 11/02/2025 Mammogram 08/06/2027 08/06/2025, 07/31/2024 Cervical Cancer Screening [...] AM EDT Narrative 08/10/2025 6:02 PM EDT [facility] [address] [place] [address] Mammography Report Signed Patient: Carlita Kim MR#: [id number] 18 : 1980 Acct:[id number] Age/Sex: 45 / F ADM Date: 08/06/25 Loc: HO.MAMMO Attending Dr: Fidel Hines MD Ordering Physician: Fidel Espinoza MD Res ults: 1Negative Date of Service: 08/06/25 Follow Up: 1 Year From Orig inal Mammogram Procedure(s): MM tomosynthesis screening BI Accession Number(s): [id number] cc: Fidel Espinoza MD Reason For Exam: [...] Emely Javier DO 08/10/2025 05:59 PM EDT RP Dictated By: Emely Javier DO Signed By: <Electronically signed by Emely Javier DO in OV> 08/10/25 1759 DD/ 1020 TD/TT: 08/06/25 1040 Wireless Sales Consultant: Procedure Note Donotuseinterpreter, Image - 08/10/2025 [facility] [address] [place] [address] Mammography Report Signed Patient: Carlita Kim#: [id number] 18 : 1980Acct:[id number] Age/Sex: 45 / FADM Date: 08/06/25 Loc: HO.MAMMO Attending Dr: Fidel Hines MD Ordering Physician: Fidel Espinoza ults: 1Negative Date of Service: 08/06/25Follow Up: 1 Year From Orig inal Mammogram Procedure(s): MM tomosynthesis screening BI Accession Number(s): [id number] cc: Fidel Espinoza MD Reason For Exam: [...] Emely Javier DO 08/10/2025 05:59 PM EDT RP Dictated By: Emely Javier DO Signed By: <Electronically signed by Emely Javier DO in OV> 08/10/25 1759 DD/ 1020 TD/TT: 08/06/25 1040 Wireless Sales Consultant: Fidel Hines MD IM BI PROCEDURES Final Result * ThinPrep Imaging Pap and HPV mRNA E6/E7 (08/05/2024 12:00 AM EDT) HPV nRNA E6/E7 Not Detected Not Detected [facility] Comment:Methodology: Transcr iption-Mediated AmplificationThis assay detects E6/E7 viral messenger RNA (mRNA) from 14high-risk HPV types (16,18,31,33,35,39,45,51,52,56,58,59,66,68).Cervical sources are required for HPV testing.If a vaginal source from a patient who has had atotal hysterectomy with removal of cervix wassubmitted, please contact the testing laboratoryfor alternative testing options.For additional information, please refer tohttp://education.[employer]/faq/IGH112r2(This link if provided for information/educational purposes only.)THIS TEST WAS PERFORMED AT:[employer] [place] [phone] KEEN MD SOURCE: SEE NOTE [facility] Comment:None given Report Status: [facility] Clinical Information: SEE NOTE [facility] Comment:None given LMP: SEE NOTE [facility] Comment:NONE GIVEN Prev. PAP: SEE NOTE [facility] Comment:NONE GIVEN Prev. BX: SEE NOTE [facility] Comment:NONE GIVEN Statement Of Adequacy: SEE NOTE [facility] Comment:Satisfactory for swetha luation.Endocervical/transformation zone componentpresent. General Categorization: [facility] Interpretation/Result: SEE NOTE [facility] Comment:Cytology Results: Ne gative for intraepitheliallesion or malignancy. Cytology Comment SEE NOTE [facility] Comment:This Pap test has be en evaluated with computerassisted technology. Crankshaft Grinder: SEE NOTE [facility] Comment:[place], CT(ASCP)CT scre ening location: [address] [address] Review Crankshaft Grinder: [facility] Pathologist [facility] PAP Infection [facility] See Note SEE NOTE [facility] Comment:EXPLANATORY NOTE:The Pap is a screening test for cervical cancer. It isnot a diagnostic test and is subject to false negativeand false positive results. It is most reliable when asatisfactory sample, regularly obtained, is submittedwith relevant clinical findings and history, and whenthe Pap result is evaluated along with historic andcurrent clinical information. 08/05/2024 08/05/2024 Narrative [facility] - 08/08/2024 3:28 PM EDT SEE SCANNED RESULTS IN EMR us Amalia Gómez MD LAB PATHOLOGY ORDERABLES Shayna farfan Result [facility] [address] [place] [address] [phone] from Last 3 Months or Most Recently Relevant to Health Maintenance [facility] [employer] Care Teams Tnt Line Supervisor Relationship Specialty Start Date End Date Fidel Espinoza MD [address] [place] [phone] PCP - General Internal Medicine 05/22/24
== END 2025-11-16 15:55 | disposition home or self-care (01) ==
LOC: HO.HCC 15:35
PROVIDERS: PCP Internal Medicine; Visit Provider Internal Medicine
DX: F11.21 Opioid dependence, in remission (principal)
CPT/HCPCS: 99213

== ENCOUNTER → 2025-11-16 15:35 | Outpatient (BNVA) | payer MEDICAID, SELFPAY | PROVIDERS: PCP Internal Medicine; Visit Provider Internal Medicine | DX: F11.21 Opioid dependence, in remission (principal) | CPT/HCPCS: 99212 ==